=== PATIENT | female | born 1975 | race Caucasian/White ===

== ENCOUNTER 2016-12-25 11:15 | Emergency (ER) | payer MEDICAID ==
[~2016-12-25] VITALS: Ht 152.4 cm; Wt 99.8 kg
[2016-12-25 11:21] VITALS: BP 140/79
--- NOTE | 2016-12-25 11:26 | NUR ---
Patient going to XRAY via wheelchair per tech.
--- NOTE | 2016-12-25 11:40 | NUR ---
Patient back from XRAY via wheelchair per tech to bed 06.
--- NOTE | 2016-12-25 11:42 | NUR ---
41F BIB FAMILY C/O SHORTNESS OF BREATH X YESTERDAY; BL WHEEZES HEARD ON AUSCULTATION; RR EVEN & LABORED AT THIS TIME; PT STATES FEELS CONGESTED W/DRY COUGH; PT C/O ACHING POSTERIOR NECK PAIN, RADIATES TO POSTERIOR HEAD, 10/10 X YESTERDAY; DENIES TRAUMA OR INJURY TO SITE AT THIS TIME; DENIES VISION LOSS AT THIS TIME; NO SWELLING OR REDNESS NOTED TO SITE; PT DENIES N/V/D AT THIS TIME; HX: ASTHMA; PT PLACED ON MONITOR, RESTING IN BED W/ HOB ELEVATED AND IN LOWEST POSITION; POSITIONED FOR COMFORT; ER MD MADE AWARE OF STATUS. WILLC CONTINUE TO MONITOR.
--- NOTE | 2016-12-25 11:47 | NUR ---
Dr. De Oliveira evaluating patient at bedside.
[2016-12-25] MEDS ORDERED: ALBUTEROL SULFATE/IPRATROPIU 3 ML SOL IH ONE (11:55)
[2016-12-25] MEDS ORDERED: NACL 0.9% 1,000 ML IV ONE (11:55)
[2016-12-25] MEDS ORDERED: methylPREDNISolone SS 125 MG/2 ML VIAL IVP ONE (11:55)
--- NOTE | 2016-12-25 12:05 | NUR ---
RT AT BEDSIDE.
--- NOTE | 2016-12-25 12:05 | NUR ---
RT at bedside to give patient breathing treatment.
--- NOTE | 2016-12-25 13:17 | NUR ---
Patient appears to be resting comfortably in bed. Vital Signs within normal limits. Respirations even and unlabored. NO ACUTE DISTRESS NOTED AT THIS TIME. WILL CONTINUE TO MONITOR.
[2016-12-25] MEDS ORDERED: MORPHINE SULFATE 2 MG/ML SYR IVP ONE (13:25)
--- NOTE | 2016-12-25 15:42 | NUR ---
IV removed, catheter intact and site benign. Applied folded 4x4 gauze and tape to stop bleeding. PT TOELRATED PROCEDURE WELL.
[2016-12-25 15:46] VITALS: BP 112/66
--- NOTE | 2016-12-25 15:46 | NUR ---
Patient discharged with v/s stable. BL LUNG SOUNDS CLEAR AT THIS TIME; RR EVEN/UNALBORED; NO ACUTE DISTRESS NOTED AT THIS TIME. Written and verbal after care instructions given and explained. Patient alert, oriented and verbalized understanding of instructions. Ambulatory with steady gait. All questions addressed prior to discharge. ID band removed. Patient advised to follow up with PMD. Rx of PREDNISONE 20MG TAB & ALBUTEROL 90MCG/ACTUATION given. Patient educated on indication of medication including possible reaction and side effects. Opportunity to ask questions provided and answered.
[2017-02-16] MEDS ORDERED: LEXAPRO10 MG PO (08:31)
== END 2016-12-25 15:46 | disposition home or self-care (01) ==
LOC: MED 11:15
DX: J45.901 Unspecified asthma with (acute) exacerbation (principal); R94.31 Abnormal electrocardiogram [ECG] [EKG]
CPT/HCPCS: 36415; 71020; 80053; 83605; 84484; 85025; 85379; 93005; 94640; 96361; 96374; 96375; 99285; J2270; J2930; J7030; J7620

== ENCOUNTER 2016-12-27 23:11 | Emergency (ER) | payer MEDICAID ==
[~2016-12-27] VITALS: Ht 160 cm; Wt 90.7 kg
[2016-12-27 23:20] VITALS: BP 161/86
--- NOTE | 2016-12-27 23:55 | NUR ---
PT TAKEN TO BED 7
--- NOTE | 2016-12-28 | NUR ---
PT IS 41 Y/O F W/C/O PALPITATIONS AND GENERAL WEAKNESS SINCE SHE TOOK AMBROXOL/DEXTROMETORFANO FOR COUGH TODAY. PT STATES WAS ADMITTED TO THIS HOSPITAL ON 12/25/16 FOR PNEUMONIA. DENIES ANY PAIN AT THE MOMENT. MED HX PNEUMONIA AND ASTHMA.
--- NOTE | 2016-12-28 00:19 | NUR ---
Patient being evaluated by DR. WILLARD at bedside.
--- NOTE | 2016-12-28 00:30 | NUR ---
POISON CONTROL CALLED, SPOKE TO JOSE. PER POISON CONTROL TELECOMMUNICATIONS LINE MECHANIC DOSE TAKEN BY PT 30 ML IS THE RECONMENDED DOSE FOR A CHILD AND PT SYMPTOMS WERE R/T TO DEXTROMETORFANO SIDE EFFECTES. AMBROXOL SIDE EFFECTS ARE UPSET STOMACH, DIARRHEA AND STOMACH PAIN BUT PT HAS NO C/O OF THESE SECOND INGRIDIENTS SIDE EFFECTS. PER POISON CONTROL TELECOMMUNICATIONS LINE MECHANIC PT SHOULD BE OK.
--- NOTE | 2016-12-28 00:31 | NUR ---
FREDDY PINTO MADE AWARE OF POISON CONTROL INFORMATION OBTAINED OVER THE PHONE.
[2016-12-28] MEDS ORDERED: NACL 0.9% 1,000 ML IV ONE (00:40)
[2016-12-28 01:35] VITALS: BP 128/71
[2017-02-16] MEDS ORDERED: LEXAPRO10 MG PO (08:31)
== END 2016-12-28 01:36 | disposition home or self-care (01) ==
LOC: MED 23:11
DX: T48.3X1A Poisoning by antitussives, accidental (unintentional), initial encounter (principal); R53.1 Weakness; R42 Dizziness and giddiness; J45.909 Unspecified asthma, uncomplicated; Y92.89 Other specified places as the place of occurrence of the external cause
CPT/HCPCS: 36415; 80053; 81002; 81025; 85025; 85610; 85730; 93005; 96360; 99285; J7030

== ENCOUNTER 2016-12-28 12:27 | Emergency (ER) | payer MEDICAID ==
[~2016-12-28] VITALS: Ht 162.6 cm; Wt 90.7 kg
--- NOTE | 2016-12-28 12:48 | NUR ---
Patient ambulated to bed 08.
[2016-12-28 12:50] VITALS: BP 138/64
--- NOTE | 2016-12-28 13:00 | NUR ---
Dr. Mccullough evaluating patient at bedside.
--- NOTE | 2016-12-28 13:05 | NUR ---
41/F c/o generalized weakness and numbness/tingling to body. Pt states she was seen here yesterday for similar symptoms, prescribed cough medication. Pt went to a clinic this morning and they sent her here for further evaluation of an abnormal EKG and overdose of Brogel 30 ml. Pt states "I didn't know how much I was supposed to take so I took a whole medicine cup full." Patient denies pain. AOX4, turkmen speaking. Cheeks flushed, skin warm and dry, afebrile. Denies N/V/D. VSS. Placed on engineer station mainline, pulse oximetry and blood pressure monitoring.
--- NOTE | 2016-12-28 13:12 | NUR ---
X-Ray at bedside.
--- NOTE | 2016-12-28 13:41 | NUR ---
Son at bedside.
--- NOTE | 2016-12-28 13:42 | NUR ---
Patient appears to be resting comfortably in bed. Vital Signs within normal limits. Respirations even and unlabored. Pt continues to c/o numbness/tingling to body. No distress noted.
[2016-12-28] MEDS ORDERED: POTASSIUM CHLORIDE 10 MEQ TABER PO ONE (14:05)
[2016-12-28 14:48] VITALS: BP 109/64
--- NOTE | 2016-12-28 14:48 | NUR ---
Chart checked and completed. The patient's care was reviewed and supervised by Kasi Porras RN.
[2017-02-16] MEDS ORDERED: LEXAPRO10 MG PO (08:31)
== END 2016-12-28 14:48 | disposition home or self-care (01) ==
LOC: MED 12:27
DX: T48.4X5A Adverse effect of expectorants, initial encounter (principal); J40 Bronchitis, not specified as acute or chronic; R03.0 Elevated blood-pressure reading, without diagnosis of hypertension; J45.909 Unspecified asthma, uncomplicated; Y92.89 Other specified places as the place of occurrence of the external cause
CPT/HCPCS: 36415; 71010; 80053; 81001; 81025; 83880; 84484; 85025; 85610; 85730; 87086; 93005; 99285; Q0092

== ENCOUNTER 2017-01-10 01:05 | Emergency (ER) | payer MEDICAID ==
[~2017-01-10] VITALS: Ht 152.4 cm; Wt 91.4 kg
[2017-01-10 01:11] VITALS: BP 110/74
--- NOTE | 2017-01-10 02:28 | NUR ---
TO ER BED 8
--- NOTE | 2017-01-10 02:34 | NUR ---
41Y F BIB DAUGHTER C/O OF GENERALIZED WEAKNESS, INSOMNIA, ANXIETY AND NERVOUSNESS X2 WKS. DENIES ANY PAIN. NO DISTRESS NOTED. V/S TAKEN AND WNL.
[2017-01-10] MEDS ORDERED: LORazepam 1 MG TAB PO ONE (02:55)
--- NOTE | 2017-01-10 03:39 | NUR ---
Patient discharged with v/s stable. Written and verbal after care instructions given and explained. Patient alert, oriented and verbalized understanding of instructions. Ambulatory with steady gait. All questions addressed prior to discharge. ID band removed. Patient advised to follow up with PMD. Rx of ATIVAN 1MG given. Patient educated on indication of medication including possible reaction and side effects. Opportunity to ask questions provided and answered.
[2017-01-10 03:40] VITALS: BP 114/82
[2017-02-16] MEDS ORDERED: LEXAPRO10 MG PO (08:31)
== END 2017-01-10 03:40 | disposition home or self-care (01) ==
LOC: MED 01:05
DX: F41.9 Anxiety disorder, unspecified (principal); J45.909 Unspecified asthma, uncomplicated

== ENCOUNTER 2017-02-14 18:14 | Inpatient (IN) | payer MEDICAID ==
[~2017-02-14] VITALS: Ht 149.9 cm; Wt 90.7 kg
[2017-02-14 18:17] VITALS: BP 150/88
[2017-02-14] MEDS ORDERED: ASPIRIN 81 MG TAB.CHEW PO ONE ×2 (18:40→19:45)
[2017-02-14] MEDS ORDERED: NACL 0.9% 1,000 ML IV ONE (18:40)
--- NOTE | 2017-02-14 18:41 | NUR ---
Patient ambulated to bed 5
--- NOTE | 2017-02-14 18:45 | NUR ---
PATIENT PRESENTS TO ED WITH INTERMITTENT PALPITATIONS, DIZZINESS, GENERAL WEAKNESS, CARPAL SPASMS X 2 MONTHS . PT STATES . DENIES N/V/D; SKIN IS PINK/WARM/DRY; AAOX4 WITH EVEN AND STEADY GAIT; LUNGS CLEAR BL; HR EVEN AND REGULAR; PT DENIES ANY FEVER, CP, SOB, OR COUGH AT THIS TIME; PATIENT STATES PAIN OF 0/10 AT THIS TIME; VSS; PATIENT POSITIONED FOR COMFORT; HOB ELEVATED; BEDRAILS UP X2; BED DOWN. ER MD MADE AWARE OF PT STATUS.
[2017-02-14 19:02] LABS: BASOPHILS # (AUTO) 0.3 K/uL (0.00-0.22); EOSINOPHILS # (AUTO) 0.3 K/uL (0-0.4); HEMATOCRIT 37.6 % (36-48); HEMOGLOBIN 12.7 g/dL (12.0-16.0); LYMPHOCYTES # (AUTO) 2.5 K/uL (2.5-16.5); MEAN CORPUSCULAR HEMOGLOBIN 29 pg (27-31); MEAN CORPUSCULAR HGB CONC 34 g/dL (33-37); MEAN CORPUSCULAR VOLUME 87 fL (80-94); MONOCYTES # (AUTO) 0.6 K/uL (0.8-1.0); PLATELET COUNT (AUTO) 280 K/uL (140-450); RED BLOOD CELL COUNT(AUTO) 4.35 MIL/uL (4.20-5.40); RED CELL DISTRIBUTION WIDTH 13.8 % (11.6-13.7); WHITE BLOOD COUNT (AUTO) 10.7 K/uL (4.8-10.8)
--- NOTE | 2017-02-14 19:12 | NUR ---
Dr. Webb evaluating patient at bedside.
[2017-02-14 19:21] LABS: ANION GAP 13.1 (8-16); CALCIUM 8.4 mg/dL (8.5-10.1); CARBON DIOXIDE 25.2 mmol/L (21-32); CREATININE 0.6 mg/dL (0.6-1.3); POTASSIUM 3.3 mmol/L (3.5-5.1)
[2017-02-14 19:24] LABS: PARTIAL THROMBOPLASTIN TIME 25.9 secs (22-35.6); PROTHROMBIN TIME 10.1 secs (10.8-13.4)
[2017-02-14 19:26] LABS: ALBUMIN 3.5 g/dL (3.4-5.0); TOTAL BILIRUBIN 0.3 mg/dL (0.0-1.0); TOTAL PROTEIN, SERUM 7.6 g/dL (6.4-8.2)
[2017-02-14] MEDS ORDERED: LORazepam 1 MG TAB PO ONE (19:40)
[2017-02-14] MEDS ORDERED: NITROGLYCERIN 0.4 MG TAB SL ONE (19:45)
[2017-02-14 20:00] VITALS: BP 114/62
--- NOTE | 2017-02-14 20:00 | NUR ---
PT ADMITTED TO UNIT FROM ED, BROUGHT BY DOREEN, PT ABLE TO AMBULATE TO BED, STEADY GAIT. PT IS AAO X4 ON ROOM AIR, NO SOB OR SIGN OF DISTRESS, PT DENIES PAIN AT THIS TIME, CONNECTED TO TELE MONITOR, IV TO RIGHT AC PATENT AND INTACT. SKIN INTACT, ORIENTED PT TO ROOM AND CALL LIGHT. DISCUSSED PLAN OF CARE WITH PATIENT, PT VERBALIZED UNDERSTANDING. CALL LIGHT WITHIN REACH. WILL CONTINUE TO MONITOR.
--- NOTE | 2017-02-14 20:05 | NUR ---
Patient will be admitted to care of DR MAYER. Admited to TELE 120A. Will go to rooM 120A. Belongings list completed. Report to HAN MANUEL .
[2017-02-14] MEDS ORDERED: ONDANSETRON 4 MG/2 ML VIAL IM/IVP PRN (21:15)
[2017-02-14] MEDS: NACL 0.9% 1,000 ML IV SCH (21:15)
[2017-02-14] MEDS ORDERED: ACETAMINOPHEN 325 MG TAB PO PRN (21:15)
[2017-02-14] MEDS ORDERED: HYDROcodone/APAP 7.5/325 MG 1 TAB PO PRN (21:15)
[2017-02-14] MEDS ORDERED: DOCUSATE SODIUM 100 MG GELCAP PO PRN (21:15)
[2017-02-14] MEDS ORDERED: MORPHINE SULFATE 2 MG/ML SYR IVP PRN (21:15)
[2017-02-14 21:58] LABS: MAGNESIUM 2.2 mg/dL (1.8-2.4); PHOSPHORUS 3.8 mg/dL (2.5-4.9); THYROID STIMULATING HORMONE 0.6 uIU/mL (0.34-3.74)
--- NOTE | 2017-02-14 22:35 | NUR ---
PT OFF UNIT TO XRAY
--- NOTE | 2017-02-14 22:45 | NUR ---
PT BACK ON UNIT, STABLE CONDITION
[2017-02-14] MEDS ORDERED: LORazepam 0.5 MG TAB PO PRN (23:30)
[2017-02-15] VITALS (7 sets, daily range): BP systolic 100–114; BP diastolic 54–69
[2017-02-15] MEDS ORDERED: POTASSIUM CHLORIDE 10 MEQ TABER PO SCH (00:10)
--- NOTE | 2017-02-15 00:50 | NUR ---
VITAL SIGNS STABLE, NO SIGN OF DISTRESS, CALL LIGHT WITHIN REACH. WILL CONTINUE TO MONITOR.
--- NOTE | 2017-02-15 02:20 | NUR ---
PATIENT SLEEPING, NO SIGN OF DISTRESS, CALL LIGHT WITHIN REACH. WILL CONTINUE TO MONITOR.
[2017-02-15 03:36] LABS: BASOPHILS # (AUTO) 0.3 K/uL (0.00-0.22); BASOPHILS % (AUTO) 2.6 % (0.0-2.0); EOSINOPHILS # (AUTO) 0.3 K/uL (0-0.4); EOSINOPHILS % (AUTO) 3.4 % (0.0-4.0); HEMATOCRIT 35.9 % (36-48); HEMOGLOBIN 11.8 g/dL (12.0-16.0); LYMPHOCYTES # (AUTO) 3.7 K/uL (2.5-16.5); LYMPHOCYTES % (AUTO) 35.6 % (20.5-51.1); MEAN CORPUSCULAR HEMOGLOBIN 29 pg (27-31); MEAN CORPUSCULAR HGB CONC 33 g/dL (33-37); MEAN CORPUSCULAR VOLUME 89 fL (80-94); MONOCYTES # (AUTO) 0.8 K/uL (0.8-1.0); MONOCYTES % (AUTO) 7.5 % (1.7-9.3); NEUTROPHILS # (AUTO) 5.2 K/uL (1.8-7.7); NEUTROPHILS % (AUTO) 50.9 % (42.2-75.2); PLATELET COUNT (AUTO) 268 K/uL (140-450); RED BLOOD CELL COUNT(AUTO) 4.06 MIL/uL (4.20-5.40); RED CELL DISTRIBUTION WIDTH 14.1 % (11.6-13.7); WHITE BLOOD COUNT (AUTO) 10.3 K/uL (4.8-10.8)
--- NOTE | 2017-02-15 04:10 | NUR ---
VITAL SIGNS STABLE, NO SOB OR SIGN OF DISTRESS, WILL CONTINUE TO MONITOR.
[2017-02-15 04:14] LABS: ANION GAP 8.5 (8-16); CALCIUM 7.8 mg/dL (8.5-10.1); CARBON DIOXIDE 27.2 mmol/L (21-32); CREATININE 0.5 mg/dL (0.6-1.3); POTASSIUM 3.7 mmol/L (3.5-5.1)
[2017-02-15 04:32] LABS: MAGNESIUM 1.9 mg/dL (1.8-2.4); PHOSPHORUS 4.1 mg/dL (2.5-4.9)
[2017-02-15] MEDS: NACL 0.9% 1,000 ML IV SCH (06:31)
--- NOTE | 2017-02-15 07:30 | NUR ---
RECEIVED REPORT FROM NIGHT NURSE, PT IS AAOX4 HUNGARIAN SPEAKING, ON ROOM AIR, IV TO RIGHT AC 20G INFUSING WELL, SKIN INTACT, PT STATES NO CHEST PAIN OR SOB, INITIAL ASSESSMENT COMPLETED, REVIEWED PLAN OF CARE WITH PT, PT VERBALIZED UNDERSTANDING, ALL SAFETY PRECAUTIONS MET, CALL LIGHT WITHIN REACH. WILL CONTINUE TO MONITOR.
--- NOTE | 2017-02-15 07:30 | NUR ---
ENDORSED PATIENT TO DAY RN AT BEDSIDE, PATIENT IN STABLE CONDITION.
[2017-02-15] MEDS: PANTOPRAZOLE 40 MG TABEC PO SCH (09:02)
--- NOTE | 2017-02-15 09:03 | NUR ---
DUE MEDICATIONS GIVEN, PT TOLERATED WELL, ALL NEEDS MET. WILL CONTINUE TO MONITOR.
--- NOTE | 2017-02-15 10:11 | NUR ---
PATIENT HAS BEEN SCREENED AND CATEGORIZED HIGH NUTRITION RISK. PATIENT WILL BE SEEN WITHIN 1-2 DAYS OF ADMISSION. 02/15/17-02/16/[address]
--- NOTE | 2017-02-15 11:50 | NUR ---
PT CURRENTLY WALKING AROUND UNIT. WILL CONTINUE TO MONITOR.
--- NOTE | 2017-02-15 14:30 | NUR ---
CHECKED IN ON PT, PT CURRENTLY SLEEPING. CALL LIGHT WITHIN REACH. WILL CONTINUE TO MONITOR.
--- NOTE | 2017-02-15 16:20 | NUR ---
PT CURRENTLY RESTING IN BED NO S/S OF DISTRESS NOTED. ALL NEEDS MET WILL CONTINUE TO MONITOR
--- NOTE | 2017-02-15 18:25 | NUR ---
PT CURRENTLY RESTING IN BED, FRIENDS AT BEDSIDE. NO S/S OF DISTRESS OR DISCOMFORT NOTED. WILL CONTINUE TO MONITOR.
--- NOTE | 2017-02-15 19:30 | NUR ---
ASSUMED CARE OF PATIENT, AWAKE, ALERT AND ORIENTED. FAMILY AT BEDSIDE. PLAN OF CARE DISCUSSED WITH PATIENT AND FAMILY MEMBER, VERBALIZED UNDERSTANDING WELL. CALL LIGHT WITHIN REACH.
--- NOTE | 2017-02-15 19:39 | NUR ---
ENDORSED PLAN OF CARE TO NIGHT NURSE, PT IN STABLE CONDITION.
--- NOTE | 2017-02-15 20:00 | NUR ---
IVF INFUSING WELL. CARE BOARD UPDATED. VITAL SIGNS STABLE. AFEBRILE. NO COMPLAINS/SOB NOTED. CALL LIGHT WITHIN REACH.
--- NOTE | 2017-02-15 23:47 | NUR ---
SLEEPING, EASILY AROUSABLE NOTED. VITAL SIGNS STABLE. AFEBRILE NOTED. CALL LIGHT WITHIN REACH.
[2017-02-16 04:08] VITALS: BP 98/57
--- NOTE | 2017-02-16 04:09 | NUR ---
AWAKE, COMPLETE BED CHANGE. ASSISTED TO BRP. NO COMPLAINS. VITAL SIGNS STABLE. CALL LIGHT WITHIN REACH.
[2017-02-16] MEDS: NACL 0.9% 1,000 ML IV SCH (06:31)
--- NOTE | 2017-02-16 07:29 | NUR ---
ENDORSED CARE AT BEDSIDE WITH ROBYN MANUEL, PATIENT IN STABLE CONDITION.
--- NOTE | 2017-02-16 07:30 | NUR ---
RECEIVED REPORT FROM RPG PROGRAMMER ANALYST NURSE AT BEDSIDE FOR CONTINUITY OF CARE. PT IS AWAIT AND ORIENTED. INTRODUCED MYSELF AND UPDATED THE BOARD. V/S WITHIN NORMAL RANGE. DENIES CHEST PAIN. IV ON R AC 20G NS 10ML. DENIES PAIN. THERE IS AN ORDER OF D/C TODAY. WILL CONTINUE TO PROCESS THE D/C.
[2017-02-16 08:00] VITALS: BP 111/61
[2017-02-16] MEDS ORDERED: ESCI10TA PO (08:31)
[2017-02-16 08:43] LABS: T4 (THYROXINE) 8.5 ug/dL (4.5-12.0)
[2017-02-16] MEDS: PANTOPRAZOLE 40 MG TABEC PO SCH (08:44)
--- NOTE | 2017-02-16 08:45 | NUR ---
ADMINISTERED MORNING MED. PT TOLERATED WELL. ASKED WHAT TIME HER RIDE WAS GOING TO GET HERE. AROUND 1:30. WILL CONTINUE TO MONITOR PT AND PROCESS D/C ORDER.
[2017-02-16] MEDS ORDERED: LORazepam 0.5 MG TAB PO SCH (08:50)
[2017-02-16 09:01] LABS: HEMOGLOBIN A1C 6.1 % (4.8-5.6)
--- NOTE | 2017-02-16 10:23 | NUR ---
PT RESTING COMFORTABLY. VISITING WITH HER NEIGHBOR. NO COMPLAINTS AT THIS TIME. WILL CONTINUE TO MONITOR PT.
--- NOTE | 2017-02-16 11:30 | NUR ---
SS NOTE: I SPOKE WITH PT BEDSIDE WITH KALEB FARIAS TO TRANSLATE AND PROVIDED PT WITH OUTPT MENTAL HE[facility].
--- NOTE | 2017-02-16 12:00 | NUR ---
D/C INSTRUCTIONS GIVEN BY KALEB FARIAS. ANSWERED ALL QUESTIONS. PT AND FAMILY VERBALIZED UNDERSTANDING. REMOVED IV, CANNULA INTACT. NO BLEEDING NOTED. REMOVED ID BAND. REMOVED TELE MONITOR. PT IN STABLE CONDITION. PT WILL GET DRESSED AND WILL GATHER PERSONAL BELONGINGS. WILL LET ME KNOW WHEN HER RIDE IS HERE AND READY TO LEAVE. Addendum: 02/16/17 at 1308 by Christine Prater RN PER HOME MEDS PICKED UP AT THE PHARMACY AND GIVEN TO PT.
--- NOTE | 2017-02-16 12:45 | NUR ---
WALKED PT OUT WITH FAMILY TO THE LOBBY. PT IS IN STABLE CONDITION. REFUSED WHEELCHAIR. PT IN STABLE CONDITION.
== END 2017-02-16 12:45 | disposition home or self-care (01) | DRG 243 ==
LOC: MED 18:14 → MTU 21:15
PROVIDERS: ADMIT Family Medicine; ATTEND Family Medicine
DX: K21.9 Gastro-esophageal reflux disease without esophagitis (principal); E43 Unspecified severe protein-calorie malnutrition; E87.8 Other disorders of electrolyte and fluid balance, not elsewhere classified; F41.1 Generalized anxiety disorder; E87.6 Hypokalemia; F32.9 Major depressive disorder, single episode, unspecified; K41.90 Unilateral femoral hernia, without obstruction or gangrene, not specified as recurrent; E66.01 Morbid (severe) obesity due to excess calories; R73.03 Prediabetes; I25.10 Atherosclerotic heart disease of native coronary artery without angina pectoris; J45.909 Unspecified asthma, uncomplicated; Z60.2 Problems related to living alone; Z71.3 Dietary counseling and surveillance; Z83.3 Family history of diabetes mellitus; Z56.0 Unemployment, unspecified; Z68.41 Body mass index [BMI] 40.0-44.9, adult
CPT/HCPCS: 36415; 71010; 74020; 80048; 80053; 83036; 83735; 83880; 84100; 84436; 84443; 84479; 84484; 84703; 85025; 85610; 85730; 87081; 93005; 96360; 99285; J7030

== ENCOUNTER 2017-02-17 21:44 | Emergency (ER) | payer MEDICAID ==
[~2017-02-17] VITALS: Ht 157.5 cm; Wt 86.2 kg
[~2017-02-17 21:44] MED LIST: ESCI10TA PO
[2017-02-17 21:53] VITALS: BP 112/63
--- NOTE | 2017-02-18 00:54 | NUR ---
AMBULATED TO ER BED 7 FROM OG
--- NOTE | 2017-02-18 01:19 | NUR ---
41Y/F PT. BIBA TO ED WITH C/O CDHEST PAIN X 6 DAYS. PT. WAS ADMITTED IN THE HOSPITAL ON 02/15/17 FOR CHEST PAIN AND HYPOCALCEMIA, PERSISTANT CHEST PAIN WITH EPISODE OF SOB. AAO X4, AMBULATORY WITH STEADY GAIT. RESPIRATIONS ROOM AIR, EVEN AND UNLABORED. C/O CHEST PAIN 02/14. VSS, NO S/SX OF DISTRESS AT THIS TIME. ER MD MADE AWRE OF PT. STATUS.
[2017-02-18] MEDS ORDERED: KETOROLAC 60 MG/2 ML VIAL IM ONE (02:25)
--- NOTE | 2017-02-18 02:30 | NUR ---
Patient being evaluated by DR. MATAMOROS at bedside.
--- NOTE | 2017-02-18 03:00 | NUR ---
Patient discharged with v/s stable. Written and verbal after care instructions given and explained. Patient alert, oriented and verbalized understanding of instructions. Ambulatory with steady gait. All questions addressed prior to discharge. ID band removed. Patient advised to follow up with PMD. Rx of MOTRIN 800 MG given. Patient educated on indication of medication including possible reaction and side effects. Opportunity to ask questions provided and answered.
[2017-02-18 03:07] VITALS: BP 117/72
== END 2017-02-18 03:00 | disposition home or self-care (01) ==
LOC: MED 21:44
DX: R07.89 Other chest pain (principal); J45.909 Unspecified asthma, uncomplicated
CPT/HCPCS: 93005; 96372; 99283; J1885

== ENCOUNTER 2018-01-18 22:10 | Emergency (ER) | payer SELFPAY ==
[~2018-01-18] VITALS: Ht 142.2 cm; Wt 83.5 kg
[2018-01-18 22:14] VITALS: BP 119/61
--- NOTE | 2018-01-18 22:18 | NUR ---
TO LOBBY A/W BED, XRAY. VSS. ISAIAS NOTED
--- NOTE | 2018-01-18 22:44 | NUR ---
PATIENT PRESENTS TO ED WITH EXPIRATORY WHEEZING X3 DAYS. DR MCCONNELL AT BEDSIDE FOR EVALUATION. PT DENIES N/V/D; SKIN IS PINK/WARM/DRY; AAOX4 WITH EVEN AND STEADY GAIT; LUNGS CLEAR BL; HR EVEN AND REGULAR; PT DENIES ANY FEVER, CP, OR COUGH AT THIS TIME; PATIENT STATES PAIN OF 0/10 AT THIS TIME; VSS; PATIENT POSITIONED FOR COMFORT; HOB ELEVATED; BEDRAILS UP X2; BED DOWN. ER MD MADE AWARE OF PT STATUS. CONTINUE TO MONITOR.
--- NOTE | 2018-01-18 22:44 | NUR ---
PT TO ER BED 7
[2018-01-18] MEDS ORDERED: ALBUTEROL SULFATE/IPRATROPIU 3 ML SOL IH ONE (23:00)
[2018-01-19 00:08] VITALS: BP 111/67
--- NOTE | 2018-01-19 00:08 | NUR ---
Patient discharged with v/s stable. Written and verbal after care instructions given and explained. Patient alert, oriented and verbalized understanding of instructions. Ambulatory with steady gait. All questions addressed prior to discharge. ID band removed. Patient advised to follow up with PMD. Rx of AZITHROMYCIN 250 given. Patient educated on indication of medication including possible reaction and side effects. Opportunity to ask questions provided and answered.
== END 2018-01-19 00:08 | disposition home or self-care (01) ==
LOC: MED 22:10
DX: J20.9 Acute bronchitis, unspecified (principal); J45.909 Unspecified asthma, uncomplicated; Z79.899 Other long term (current) drug therapy
CPT/HCPCS: 71045; 94640; 94760; 99283; J7620

== ENCOUNTER 2018-11-06 01:26 | Inpatient (IN) | payer MEDICAID ==
[~2018-11-06] VITALS: Ht 160 cm; Wt 71.7 kg
[2018-11-06 01:38] VITALS: BP 149/105
[2018-11-06] MEDS ORDERED: ALBUTEROL SULFATE/IPRATROPIU 3 ML SOL IH ONE ×2 (01:40)
--- NOTE | 2018-11-06 01:44 | NUR ---
PT TO ED WITH C/O SOB X 3 DAYS. PT DENIES CP. AUDIBLE WHEEZING AND LABORED BREATHING NOTED. LUNG SOUNDS CLEAR THROUGHOUT. PT PLACED INTO BED, PENDING MD BOLIVAR. RT AT BEDSIDE FOR INTERVENTION.
--- NOTE | 2018-11-06 02:35 | NUR ---
X-RAY AT BEDSIDE.
[2018-11-06] MEDS ORDERED: methylPREDNISolone SS 125 MG/2 ML VIAL IM ONE (02:50)
[2018-11-06] MEDS ORDERED: ALBUTEROL 0.083% 2.5 MG/3 ML NEBU INH ONE (02:50)
--- NOTE | 2018-11-06 02:59 | NUR ---
RT AT BEDSIDE FOR TX.
[2018-11-06] MEDS ORDERED: MAG SULF 2000 MG/WATER PREMIX 50 ML IV ONE (04:05)
[2018-11-06] MEDS ORDERED: ALBU0.0912 INH (04:07)
[2018-11-06] MEDS: NACL 0.9% 1,000 ML IV SCH ×2 (04:13→20:54)
[2018-11-06] MEDS ORDERED: ZOLPIDEM 5 MG TAB PO PRN (04:15)
[2018-11-06] MEDS ORDERED: HYDROcodone/APAP 5/325 MG 1 TAB TAB PO PRN (04:15)
[2018-11-06] MEDS ORDERED: ALBUTEROL SULFATE/IPRATROPIU 3 ML SOL IH PRN (04:15)
[2018-11-06] MEDS ORDERED: ACETAMINOPHEN 325 MG TAB PO PRN (04:15)
[2018-11-06] MEDS ORDERED: MORPHINE SULFATE 2 MG/ML SYR IVP PRN (04:15)
[2018-11-06] MEDS ORDERED: DOCUSATE SODIUM 100 MG GELCAP PO PRN (04:15)
[2018-11-06] MEDS ORDERED: ONDANSETRON 4 MG/2 ML VIAL IM/IVP PRN (04:15)
[2018-11-06] MEDS ORDERED: LORazepam 2 MG/ML VIAL IM/IVP PRN (04:15)
[2018-11-06 04:18] LABS: BASOPHILS # (AUTO) 0.1 K/uL (0.00-0.22); BASOPHILS % (AUTO) 0.5 % (0.0-2.0); EOSINOPHILS # (AUTO) 0.3 K/uL (0-0.4); EOSINOPHILS % (AUTO) 2.2 % (0.0-4.0); HEMATOCRIT 37.2 % (36-48); HEMOGLOBIN 12.3 g/dL (12.0-16.0); LYMPHOCYTES # (AUTO) 3.3 K/uL (2.5-16.5); LYMPHOCYTES % (AUTO) 28.2 % (20.5-51.1); MEAN CORPUSCULAR HEMOGLOBIN 29 pg (27-31); MEAN CORPUSCULAR HGB CONC 33 g/dL (33-37); MEAN CORPUSCULAR VOLUME 87.1 fL (80-94); MONOCYTES # (AUTO) 0.5 K/uL (0.8-1.0); MONOCYTES % (AUTO) 4.5 % (1.7-9.3); NEUTROPHILS # (AUTO) 7.7 K/uL (1.8-7.7); NEUTROPHILS % (AUTO) 64.6 % (42.2-75.2); PLATELET COUNT (AUTO) 293 K/uL (140-450); RED BLOOD CELL COUNT(AUTO) 4.27 MIL/uL (4.20-5.40); RED CELL DISTRIBUTION WIDTH 14.5 % (11.6-13.7); WHITE BLOOD COUNT (AUTO) 11.8 K/uL (4.8-10.8)
[2018-11-06 04:33] LABS: ALBUMIN 3.5 g/dL (3.4-5.0); ANION GAP 12.8 (8-16); CARBON DIOXIDE 25.2 mmol/L (21-32); CREATININE 0.6 mg/dL (0.6-1.3); TOTAL BILIRUBIN 0.2 mg/dL (0.0-1.0)
--- NOTE | 2018-11-06 04:37 | NUR ---
Patient will be admitted to care of DR MALDONADO. Admited to MED SURG. Will go to room 120-A. Belongings list completed. Report to KALEB LANDAVERDE.
[2018-11-06] MEDS ORDERED: POTASSIUM CHLORIDE 10 MEQ TABER PO ONE (04:40)
[2018-11-06] MEDS ORDERED: guaiFENesin/CODEINE 100/10MG 5 ML UDC PO PRN (04:45)
--- NOTE | 2018-11-06 05:05 | NUR ---
RECEIVED PT FROM [facility] ER NIGHT NURSE AT BEDSIDE. PT BROUGHT UP BY DOREEN TO ROOM 120 AND AMBULATED TO BED A WITH A STEADY GAIT. PT IS AOX4 KENYAN SPEAKING WOMEN WITH NO HX EXCEPT ASTHMA. PT DENIES ANY MEDICAL HX, SKIN INTACT WITH NO C/O OF PAIN PT NOTED WHEEZING WITH INSPIRATION AND EXPIRATION. PT LUNGS CLEAR TO AUSCULTATION OTHERWISE. PT HAS R HAND 22G IV SITE. MAGNESIUM STILL RUNNING PIGGYBACK AT 25MLS FROM ER. PT HAS N/S AT 60MLS/HR. V/S FOLLOWS T 97.4 P 94 R 22 B/P 126/70 02 96% ON ROOM AIR.
[2018-11-06 05:16] LABS: PROTHROMBIN TIME 9.4 secs (10.8-13.4)
[2018-11-06 05:27] LABS: CHOL/HDL RATIO 2.6 (1-4.5); MAGNESIUM 2.1 mg/dL (1.8-2.4); PHOSPHORUS 3.9 mg/dL (2.5-4.9); THYROID STIMULATING HORMONE 1.39 uIU/mL (0.34-3.74)
--- NOTE | 2018-11-06 05:33 | NUR ---
ADMISSION QUESTIONS ASKED AND ANSWERED VIA MARCELLA OFFAL WORKER FOR [facility] # [id number]. PT HAS NO C/O OF PAIN AT THIS TIME BED LOW AND SIDE RAILS UP X2.
[2018-11-06 05:45] VITALS: BP 126/70
[2018-11-06] MEDS ORDERED: ALBUTEROL SULFATE/IPRATROPIU 3 ML SOL IH SCH (06:00)
[2018-11-06] MEDS ORDERED: cefTRIAXone 1,000 MG VIAL ONE (06:21)
--- NOTE | 2018-11-06 07:42 | NUR ---
GAVE REPORT TO MOHINI MANULE DAYSHIFT NURSE AT BEDSIDE FOR CONTINUITY OF CARE, PT IN STABLE CONDITION.
--- NOTE | 2018-11-06 07:43 | NUR ---
GOT BEDSIDE REPORT FROM KALEB LANDAVERDE. PATIENT ON MED SURGE AND STANDARD PRECAUTIONS IN PLACE, PATIENT AAOX4 AND ON ROOM AIR, NO DISTRESS NOTED. SKIN INTACT. IV ON 4 H 24 G INFUSING NS AT 60, IV ASYMPTOMATIC PATENT AND INTACT. BED IN LOW POSITION, CALL LIGHT WITHIN REACH, SIDE RAILS X2 UP. WILL CONTINUE TO MONITOR.
[2018-11-06 08:00] VITALS: BP 99/64
--- NOTE | 2018-11-06 08:44 | NUR ---
PATIENT HAS BEEN SCREENED AND CATEGORIZED HIGH NUTRITION RISK. PATIENT WILL BE SEEN WITHIN 1-2 DAYS OF ADMISSION. 11/06/18-11/07/[address]
[2018-11-06] MEDS ORDERED: methylPREDNISolone SS 125 MG/2 ML VIAL IVP SCH (09:00)
[2018-11-06] MEDS ORDERED: LORATADINE 10 MG TAB PO SCH (09:00)
[2018-11-06] MEDS: LACTOBACILLUS RHAMNOSUS GG 1 EACH CAP PO SCH (09:14)
[2018-11-06] MEDS: FAMOTIDINE 20 MG TAB PO SCH (09:15)
--- NOTE | 2018-11-06 09:30 | NUR ---
ADMINISTERED SCHEDULED MEDS. PATIENT TOLERATED WELL
--- NOTE | 2018-11-06 11:57 | NUR ---
PATIENT ON ROOM AIR, NO DISTRESS NOTED, LYING COMFORTABLY IN BED
[2018-11-06] MEDS ORDERED: INFLUENZA VIRUS VACCINE QUAD 0.5 ML SYR IMVAC PRN (12:40)
[2018-11-06] MEDS: methylPREDNISolone SS 125 MG/2 ML VIAL IVP SCH ×2 (12:41→20:54)
--- NOTE | 2018-11-06 12:46 | NUR ---
ADMINISTERED SCHEDULED MEDS, PATIENT ON ROOM AIR NO DISTRESS NOTED
[2018-11-06] MEDS ORDERED: BUDESONIDE 0.25 MG/2 ML NEBU INH SCH (13:00)
[2018-11-06] MEDS: ALBUTEROL SULFATE/IPRATROPIU 3 ML SOL IH SCH ×2 (13:29→19:14)
--- NOTE | 2018-11-06 14:32 | NUR ---
PATIENT SLEEPING, ON ROOM AIR, NO DISTRESS NOTED
--- NOTE | 2018-11-06 14:48 | NUR ---
11/06/18 RD INITIAL ASSESSMENT COMPLETED PLEASE REFER TO NUTRITION ASSESSMENT UNDER CARE ACTIVITY FOR ESTIMATED NUTRITIONAL NEEDS. 1. CONTINUE [facility] DIET TOLERATED 2. DIABETES EDUCATION WAS PROVIDED 3. RD TO FOLLOW-UP 5-7 DAYS, LOW RISK MATT HERRERA RD
--- NOTE | 2018-11-06 15:42 | NUR ---
@ 1130: PAGED DR. CHARLIE LINARES UNDER [facility], PER DR. SANCHEZ, DR. BHAGAT FROM [facility] IS NOT ACCEPTING PTS AT THIS TIME. AWAITING FOR DR. LINARES TO CALL BACK (IF THEY WANT TO TAKE THE PT UNDER THEIR SERVICE).
--- NOTE | 2018-11-06 15:49 | NUR ---
DR. CHARLIE LINARES FROM [facility] DID NOT RETURN CALL, DR. SHARMA NOTIFIED, STATED THEY ARE STILL KEEPING THE PT UNDER DR. MALDONADO'S SERVICE.
[2018-11-06 16:00] VITALS: BP 95/56
--- NOTE | 2018-11-06 16:57 | NUR ---
PATIENT SLEEPING, ON ROOM AIR, NO DISTRESS NOTED
[2018-11-06] MEDS: BUDESONIDE 0.25 MG/2 ML NEBU INH SCH (19:14)
--- NOTE | 2018-11-06 19:27 | NUR ---
GAVE BEDSIDE REPORT TO KALEB GEORGE. PATIENT ENDORSED IN STABLE CONDITION, CURRENTLY ON BREATHING TREATMENTS
--- NOTE | 2018-11-06 19:30 | NUR ---
RECEIVED BEDSIDE REPORT FROM DAY SHIFT NURSE FOR CONTINUITY OF CARE. PATIENT AWAKE, ALERT, AND COOPERATIVE. RESPIRATION EVEN UNLABORED ON ROOM AIR. DENIES PAIN. SKIN IS WARM AND DRY. IV PATENT AND INTACT. FAMILY AT BEDSIDE. PLAN OF CARE WAS DISCUSSED. ALL SAFETY MEASURES ARE IN PLACE. BED IS AT LOW POSITION. CALL LIGHT WITHIN REACH AND VERBALIZE ITS USE. WILL CONTINUE TO MONITOR.
--- NOTE | 2018-11-06 20:00 | NUR ---
INITIAL ASSESSMENT DONE. VITALS WERE TAKEN. PATIENT CONDITION STABLE. NO DISTRESS NOTED. WILL CONTINUE TO MONITOR.
[2018-11-06 20:05] LABS: APPEARANCE,URINE CLEAR (CLEAR); BILIRUBIN,URINE NEGATIVE (NEGATIVE); BLOOD, URINE NEGATIVE (NEGATIVE); COLOR,URINE YELLOW (YELLOW); LEUKOCYTE ESTERASE ,URINE NEGATIVE (NEGATIVE); NITRITE, URINE NEGATIVE (NEGATIVE); UGLUCOSE 2+ (NEGATIVE)
--- NOTE | 2018-11-06 20:07 | NUR ---
SPUTUM SAMPLE GIVEN BY PATIENT. WILL SEND TO LAB
[2018-11-06 20:09] LABS: BARBITURATE, URINE NEG. ng/ml (NEG <=200); BENZODIAZEPINE, URINE NEG. ng/mL (NEG <=200); CANNABINOID, URINE NEG. ng/mL (NEG <=50); COCAINE, URINE NEG. ng/mL (NEG <=300); OPIATE, URINE NEG. ng/mL (NEG <=2000); PHENCYCLIDINE SCREEN,URINE NEG. ng/mL (NEG <=25)
--- NOTE | 2018-11-06 21:00 | NUR ---
ALL SCHEDULE MEDS WERE GIVEN PER ORDER. NO ASE NOTED. WILL CONTINUE TO MONITOR.
--- NOTE | 2018-11-06 23:00 | NUR ---
CHECKED PATIENT. PATIENT WATCHING TV RESPIRATION EVEN UNLABORED ON ROOM AIR. NO DISTRESS NOTED. WILL CONTINUE TO MONITOR.
[2018-11-07] VITALS: BP 102/49
--- NOTE | 2018-11-07 | NUR ---
VITALS WERE TAKEN. PATIENT CONDITION STABLE. WILL CONTINUE TO MONITOR.
[2018-11-07] MEDS ORDERED: guaiFENesin DM 200/20 MG-10 ML 10 ML UDC PO PRN (02:30)
--- NOTE | 2018-11-07 02:30 | NUR ---
PATIENT COMPLAINED OF COUGH AND EXCESSIVE PHLEGM IN HER THROAT. NOTIFIED DR. DEAN. ADMINISTERED PRN COUGH. WILL CONTINUE TO MONITOR.
--- NOTE | 2018-11-07 03:20 | NUR ---
PATIENT ACCIDENTALLY PULLED HER IV. NO ACTIVE BLEEDING. CANNULA INTACT. INSERTED NEW IV LINE TO RIGHT FOREARM 24G AND TOLERATED WELL. WILL CONTINUE TO MONITOR.
--- NOTE | 2018-11-07 04:00 | NUR ---
CHECKED PATIENT. PATIENT SLEEPING RESPIRATION EVEN UNLABORED ON ROOM AIR. NO DISTRESS NOTED. WILL CONTINUE TO MONITOR.
[2018-11-07] MEDS: methylPREDNISolone SS 125 MG/2 ML VIAL IVP SCH (04:22)
[2018-11-07] MEDS ORDERED: DEXTROSE 50% 50 ML SYR IVP PRN (06:05)
[2018-11-07] MEDS: BLOOD GLUCOSE MONITORING 1 DEV DEV FS SCH ×4 (06:29→20:25)
[2018-11-07] MEDS: INSULIN LISPRO SLIDING SCALE 100 UNITS/ML VIAL SUBQ PRN ×2 (06:30→12:11)
[2018-11-07] MEDS: ALBUTEROL SULFATE/IPRATROPIU 3 ML SOL IH SCH ×3 (06:45→19:46)
[2018-11-07 06:53] LABS: BASOPHILS % (AUTO) 0.1 % (0.0-2.0); HEMATOCRIT 33.4 % (36-48); LYMPHOCYTES % (AUTO) 5.5 % (20.5-51.1); MEAN CORPUSCULAR HEMOGLOBIN 29 pg (27-31); MEAN CORPUSCULAR HGB CONC 33 g/dL (33-37); MONOCYTES # (AUTO) 0.6 K/uL (0.8-1.0); MONOCYTES % (AUTO) 3.6 % (1.7-9.3); NEUTROPHILS # (AUTO) 16.2 K/uL (1.8-7.7); NEUTROPHILS % (AUTO) 90.8 % (42.2-75.2); PLATELET COUNT (AUTO) 274 K/uL (140-450); RED BLOOD CELL COUNT(AUTO) 3.84 MIL/uL (4.20-5.40); RED CELL DISTRIBUTION WIDTH 14.8 % (11.6-13.7)
[2018-11-07] MEDS: BUDESONIDE 0.25 MG/2 ML NEBU INH SCH ×2 (06:55→19:46)
[2018-11-07 07:04] LABS: ANION GAP 16.8 (8-16); CREATININE 0.5 mg/dL (0.6-1.3); POTASSIUM 3.8 mmol/L (3.5-5.1)
[2018-11-07 07:14] LABS: WHITE BLOOD COUNT (AUTO) 17.9 K/uL (4.8-10.8)
--- NOTE | 2018-11-07 07:21 | NUR ---
ENDORSED PATIENT TO DAY SHIFT NURSE FOR CONTINUITY OF CARE. PATIENT IS STABLE.
--- NOTE | 2018-11-07 07:23 | NUR ---
RECEIVED BEDSIDE REPORT FROM SMOKING TOBACCO PACKER HAND NURSE. PATIENT AOX4 AND COOPERATIVE. RESPIRATION EVEN AND UNLABORED ON ROOM AIR. DENIES PAIN. NO SIGNS OF DISTRESS NOTED. SKIN INTACT, WARM AND DRY. IV ON R FA 24G, PATENT AND INTACT, INFUSING PER MD ORDER. ABLE TO AMBULATE WITH STEADY GAIT. CONTINENT. PLAN OF CARE WAS DISCUSSED WITH PATIENT, AND PATIENT VERBALIZED OK. ALL SAFETY MEASURES ARE IN PLACE. INSTRUCTED PATIENT TO USE THE CALL LIGHT FOR ANY ASSISTANCE. PATIENT VERBALIZED OK. BED AT LOW POSITION. CALL LIGHT WITHIN REACH AND VERBALIZE ITS USE.
[2018-11-07 08:00] VITALS: BP 115/58
[2018-11-07] MEDS ORDERED: AZITHROMYCIN 500 MG in DEXTROSE 5% 250 ML IV SCH (09:00)
[2018-11-07] MEDS: FAMOTIDINE 20 MG TAB PO SCH (09:24)
[2018-11-07] MEDS: LACTOBACILLUS RHAMNOSUS GG 1 EACH CAP PO SCH (09:24)
[2018-11-07] MEDS: guaiFENesin 600 MG TABER PO SCH ×2 (09:24→20:21)
[2018-11-07] MEDS: FLUTICASONE NASAL 50 MCG/ACTUATION 16 GM BTL NS SCH (09:24)
--- NOTE | 2018-11-07 09:30 | NUR ---
ADMINISTERED MEDS PER MD ORDER, PATIENT TOLERATED WELL. DENIES PAIN AND SOB. PATIENT IS WATCHING ON BED AT THIS TIME. NO SIGNS OF DISTRESS NOTED.
--- NOTE | 2018-11-07 11:05 | NUR ---
COLLECTED NASAL INFLUENZA SWAB AND PROVIDED SPUTUM SPECIMEN CUP TO PATIENT. INSTRUCTED PATIENT TO SPIT INTO THE CUP WHEN SHE HAS ANY SPUTUM OR COUGH. PATIENT VERBALIZED UNDERSTANDING. PATIENT IS WATCHING TV ON BED. DENIES SOB. NO SIGNS OF DISTRESS NOTED.
[2018-11-07] MEDS ORDERED: methylPREDNISolone SS 40 MG/ML VIAL IVP SCH (13:00)
[2018-11-07] MEDS: NACL 0.9% 1,000 ML IV SCH (13:24)
--- NOTE | 2018-11-07 13:29 | NUR ---
PATIENT IS SITTING UP ON BED AND WATCHING TV. DENIES PAIN AND SOB. NO SIGNS OF DISTRESS NOTED. INSTRUCTED PATIENT TO SPIT INTO THE SPECIMEN CUP IF SHE HAS ANY. PATIENT VERBALIZED UNDERSTANDING.
[2018-11-07 14:00] LABS: MAGNESIUM 2.3 mg/dL (1.8-2.4); PHOSPHORUS 2.9 mg/dL (2.5-4.9)
--- NOTE | 2018-11-07 14:35 | NUR ---
PATIENT C/O THAT SHE FELT LIGHTHEADED. SHE SAID SHE DOES NOT NEED TO TAKE ANY INSULIN AT HOME AND NO ISSUE WITH HER GLUCOSE. CHECKED PATIENT'S BLOOD GLUCOSE AT THIS TIME AT BEDSIDE AND RECEIVED 315. DM EDUCATION PROVIDED TO PATIENT AND PATIENT VERBALIZED UNDERSTANDING. DR SANCHEZ CAME TO BEDSIDE AND EDUCATED PATIENT ON REGARDS OF DIABETES MELLITUS MANAGEMENT, DIET, AND EXERCISE. PATIENT WAS ACKNOWLEDGED AND AWARE.
--- NOTE | 2018-11-07 15:48 | NUR ---
DR AMADOR IS TALKING TO PATIENT AT BEDSIDE. NO SIGNS OF DISTRESS NOTED.
[2018-11-07 16:00] VITALS: BP 105/47
--- NOTE | 2018-11-07 16:39 | NUR ---
CHECKED PATIENT'S BLOOD GLUCOSE AND RECEIVED 254. PER PATIENT, SHE SAID SHE DOES NOT WANT TO GET ANY MORE INSULIN AND IT MAKES HER FEEL WORSE. PATIENT ALSO SAID THAT THIS IS TOO MUCH MEDICINE FOR ME. EDUCATED PATIENT ON BLOOD GLUCOSE MANAGEMENT. PATIENT VERBALIZED "OK, MAYBE MANANA."
--- NOTE | 2018-11-07 19:28 | NUR ---
ENDORSED PATIENT TO BULK STATION OPERATOR NURSE AT BEDSIDE. PATIENT IS IN A STABLE CONDITION.
--- NOTE | 2018-11-07 19:29 | NUR ---
RECD. SITTING ON BED, AWAKE, A/OX4. RESPIRATION EVEN AND UNLABORED, STILL WITH BILATERAL WHEEZES ON LUNG AUSCULTATION. IV OF NS AT 60 ML/HR INFUSING, RIGHT FOREARM G24. ON ROUTINE BREATHING TREATMENTS. PLAN OF CARE FOR THE SHIFT DISCUSSED. VERBALIZED UNDERSTANDING. DENIES PAIN 0/10.
--- NOTE | 2018-11-07 20:00 | NUR ---
Patient's Plan of Care was discussed and reviewed with TIRE FABRIC IMPREGNATING RANGE TENDER: SAIRA FONSECA
--- NOTE | 2018-11-07 20:05 | NUR ---
RECEIVED PATIENT ON ROOM AIR, PULSE OX SAT 97%. SCHEDULED BREATHING TREATMENTS ADMINISTERED. TOLERATED WELL, NO ADVERSE SIDE EFFECTS. ORAL RINSE DONE POST TX. NO RESPIRATORY DISTRESS NOTED AT THIS TIME. WILL CONTINUE TO MONITOR.
--- NOTE | 2018-11-07 20:21 | NUR ---
DUE PO MEDICATION GIVEN. SNACK GIVEN FOR THE NIGHT, REFUSED INSULIN COVERAGE. EXPLAINED IT'S IMPORTANCE, BUT STILL REFUSED. STATED SHE IS NOT DIABETIC AT HOME, ONLY IN THE HOSPITAL.
--- NOTE | 2018-11-07 20:30 | NUR ---
NEW SPUTUM SPECIMEN CUP GIVEN TO PATIENT, INSTRUCTED TO COUGH HARD AND EXPECTORATE PHLEGM, SALIVA IS NOT ACCEPTABLE. AGREED.
[2018-11-08] VITALS: BP 107/50
--- NOTE | 2018-11-08 | NUR ---
SLEEPING COMFORTABLY IN BED, NO RESPIRATORY DISTRESS NOTED.
--- NOTE | 2018-11-08 05:45 | NUR ---
SPUTUM SPECIMEN SENT TO LAB DID NOT QUALITY, MORE ON SALIVA, WILL ENDORSE TO AM NURSE TO TRY TO COLLECT AGAIN.
[2018-11-08] MEDS: NACL 0.9% 1,000 ML IV SCH (06:13)
[2018-11-08 06:17] LABS: HEMATOCRIT 32.3 % (36-48); HEMOGLOBIN 10.8 g/dL (12.0-16.0); LYMPHOCYTES # (AUTO) 2.6 K/uL (2.5-16.5); LYMPHOCYTES % (AUTO) 14.7 % (20.5-51.1); MEAN CORPUSCULAR HEMOGLOBIN 29 pg (27-31); MEAN CORPUSCULAR HGB CONC 34 g/dL (33-37); MEAN CORPUSCULAR VOLUME 87.3 fL (80-94); MONOCYTES # (AUTO) 1.1 K/uL (0.8-1.0); MONOCYTES % (AUTO) 6.6 % (1.7-9.3); NEUTROPHILS # (AUTO) 13.7 K/uL (1.8-7.7); NEUTROPHILS % (AUTO) 78.7 % (42.2-75.2); PLATELET COUNT (AUTO) 259 K/uL (140-450); RED CELL DISTRIBUTION WIDTH 15.2 % (11.6-13.7); WHITE BLOOD COUNT (AUTO) 17.4 K/uL (4.8-10.8)
[2018-11-08] MEDS: BLOOD GLUCOSE MONITORING 1 DEV DEV FS SCH ×2 (06:17→11:20)
[2018-11-08 06:32] LABS: ANION GAP 11.8 (8-16); CARBON DIOXIDE 26.1 mmol/L (21-32); CREATININE 0.6 mg/dL (0.6-1.3); POTASSIUM 3.9 mmol/L (3.5-5.1)
--- NOTE | 2018-11-08 07:30 | NUR ---
ENDORSED TO AM SHIFT NURSE FOR CONTINUITY OF CARE.
--- NOTE | 2018-11-08 07:31 | NUR ---
SBAR REPORT RECEIVED FROM NIGHT NURSE AT PT BEDSIDE. PATIENT RESTING IN BED, AWAKENS TO LIGHT STIMULI. ALERT AND ORIENTED. DENIES PAIN. ON ROOM AIR, NO ACUTE RESPIRATORY DISTRESS NOTED. CALL LIGHT WITHIN REACH.
[2018-11-08] MEDS: ALBUTEROL SULFATE/IPRATROPIU 3 ML SOL IH SCH ×2 (07:36→13:00)
[2018-11-08] MEDS: BUDESONIDE 0.25 MG/2 ML NEBU INH SCH (07:38)
[2018-11-08 08:00] VITALS: BP 110/56
[2018-11-08] MEDS ORDERED: LACT1CAP21 PO (08:29)
[2018-11-08] MEDS ORDERED: FLUT1DSK IH (08:29)
[2018-11-08] MEDS ORDERED: AZIT250T3 PO (08:29)
[2018-11-08] MEDS ORDERED: AZITHROMYCIN 250 MG in DEXTROSE 5% 250 ML IV SCH (09:00)
[2018-11-08] MEDS: FLUTICASONE NASAL 50 MCG/ACTUATION 16 GM BTL NS SCH (09:33)
[2018-11-08] MEDS: FAMOTIDINE 20 MG TAB PO SCH (09:34)
[2018-11-08] MEDS: LACTOBACILLUS RHAMNOSUS GG 1 EACH CAP PO SCH (09:34)
[2018-11-08] MEDS: guaiFENesin 600 MG TABER PO SCH (09:34)
--- NOTE | 2018-11-08 10:15 | NUR ---
PATIENT SEEN BY DR. MALDONADO AT BEDSIDE. UPDATED PATIENT ON CURRENT PLAN OF CARE. DR. CRUZ SPOKE WITH PATIENT REGARDING HOME MEDS AND FOLLOW UP PLAN OF CARE. ALL QUESTIONS AND CONCERNS MET WITH PATIENT. NO ACUTE DISTRESS NOTED.
[2018-11-08] MEDS ORDERED: PRED20TA5 PO (12:45)
[2018-11-08] MEDS ORDERED: PRED10TA5 PO (12:45)
[2018-11-08] MEDS ORDERED: MONT10TA35 PO (12:45)
[2018-11-08 13:30] VITALS: BP 110/56
[2018-11-08] MEDS ORDERED: GUAI-646 PO (13:36)
--- NOTE | 2018-11-08 14:00 | NUR ---
PATIENT DISCHARGE ORDERS RECEIVED, AWAITING PATIENT'S FAMILY FOR RIDE HOME. NO ACUTE DISTRESS NOTED.
--- NOTE | 2018-11-08 15:20 | NUR ---
PATIENT DISCHARGE INSTRUCTIONS GIVEN, VERBALIZED UNDERSTANDING. DISCHARGE MEDICATIONS TEACHING GIVEN. PATIENT REFUSED [facility] CONSULTANT, DR. CRUZ SPOKE TO PATIENT IN [place]ER[place] IN DETAIL REGARDING MEDICATIONS AND FOLLOW UP. SON AT BEDSIDE ABLE TO VERBALIZE UNDERSTANDING AND TRANSLATION. IV REMOVED, CANULA INTACT. PATIENT AMBULATORY, DENIES DISCOMFORT. ALL QUESTIONS AND CONCERNS MET WITH PATIENT. PATIENT DISCHARGED VIA WHEELCHAIR TO SON.
== END 2018-11-08 15:20 | disposition home or self-care (01) | DRG 141 ==
LOC: MED 01:26 → MTU 04:22
PROVIDERS: ADMIT General Practice; ATTEND General Practice
DX: J45.51 Severe persistent asthma with (acute) exacerbation (principal); E11.65 Type 2 diabetes mellitus with hyperglycemia; E87.6 Hypokalemia; D72.829 Elevated white blood cell count, unspecified; E66.9 Obesity, unspecified; I10 Essential (primary) hypertension; F43.9 Reaction to severe stress, unspecified; K59.00 Constipation, unspecified; T38.0X5A Adverse effect of glucocorticoids and synthetic analogues, initial encounter; Z79.899 Other long term (current) drug therapy; Z98.51 Tubal ligation status; Z83.3 Family history of diabetes mellitus; Y92.89 Other specified places as the place of occurrence of the external cause; Z68.28 Body mass index [BMI] 28.0-28.9, adult; Z79.84 Long term (current) use of oral hypoglycemic drugs
CPT/HCPCS: 36415; 71045; 80048; 80053; 80305; 81003; 82948; 83036; 83690; 83735; 83880; 84100; 84134; 84443; 85025; 85610; 85730; 87070; 87081; 87205; 87804; 93005; 94640; 94644; 96372; 99285; J0456; J0696; J1815; J2920; J2930; J3475; J7030; J7060; J7613; J7620; J7626; Q0092

== ENCOUNTER 2019-01-04 17:54 | Emergency (ER) | payer MEDICAID ==
[~2019-01-04] VITALS: Ht 149.9 cm; Wt 71.4 kg
[2019-01-04 17:54] VITALS: BP 113/60
[~2019-01-04 17:54] MED LIST changes: +ALBU0.0912 INH; +AZIT250T3 PO; -ESCI10TA PO; +FLUT1DSK IH; +GUAI-646 PO; +LACT1CAP21 PO; +MONT10TA35 PO; +PRED10TA5 PO; +PRED20TA5 PO
--- NOTE | 2019-01-04 17:54 | NUR ---
PATIENT BIBA WITH C/O SOB/CHEST PAIN 03/17, WHEEZING LUNG SOUNDS REINA, BREATHING TX GIVEN PER [facility], HX OF ASTHMA. DENIES N/V/D; SKIN IS PINK/WARM/DRY; VSS; PATIENT POSITIONED FOR COMFORT; HOB ELEVATED; BEDRAILS UP X2; BED DOWN. ER MD MADE AWARE OF PT STATUS.
--- NOTE | 2019-01-04 17:55 | NUR ---
Patient being evaluated by physician at bedside.
[2019-01-04] MEDS ORDERED: predniSONE 20 MG TAB PO ONE (18:05)
[2019-01-04 19:08] VITALS: BP 114/64
--- NOTE | 2019-01-04 19:08 | NUR ---
Patient discharged with v/s stable. Written and verbal after care instructions given and explained. All questions addressed prior to discharge. ID band removed. IV REMOVED. Rx of PREDNISONE given. Patient educated on indication of medication including possible reaction and side effects. Patient advised to follow up with PMD.
== END 2019-01-04 19:08 | disposition home or self-care (01) ==
LOC: MED 17:54
DX: J45.909 Unspecified asthma, uncomplicated (principal); F41.9 Anxiety disorder, unspecified; F32.9 Major depressive disorder, single episode, unspecified; M54.2 Cervicalgia; Z79.899 Other long term (current) drug therapy; Z79.2 Long term (current) use of antibiotics
CPT/HCPCS: 81002; 81025; 93005; 99283; J7512

== ENCOUNTER 2019-02-23 06:21 | Emergency (ER) | payer MEDICAID ==
[~2019-02-23] VITALS: Ht 157.5 cm; Wt 86.2 kg
[2019-02-23 06:25] VITALS: BP 119/67
--- NOTE | 2019-02-23 06:25 | NUR ---
TO BED # 11 AMBULATORY
--- NOTE | 2019-02-23 06:35 | NUR ---
ASSUMED CARE OF PT AT THIS TIME. C/O ACUTE ASTHMA EXACERBATION X 3 DAYS. PT STATES HER HOME ALBUTEROL NEB TREATMENTS ARE INEFFECTIVE. NO RESPIRATORY DISTRESS NOTED. PT SPEAKS IN FULL SENTENCES. C/O MID-EPIGASTRIC PAIN DESCRIBED , "BLOATING" X 1 DAY. PT DENIES ANY N/V/D. AAOX4 WITH EVEN AND STEADY GAIT; PATIENT STATES PAIN OF 7/10; VSS; PATIENT POSITIONED FOR COMFORT; HOB ELEVATED; BEDRAILS UP X2; BED DOWN. ER MD MADE AWARE OF PT STATUS. WILL CONTINUE TO MONITOR.
--- NOTE | 2019-02-23 07:15 | NUR ---
RECEIVED REPORT FROM MARY LINDSAY NURSE.
--- NOTE | 2019-02-23 07:27 | NUR ---
DR. GARCIA EVALUATING PATIENT AT THIS TIME.
[2019-02-23] MEDS ORDERED: predniSONE 20 MG TAB PO ONE (07:40)
[2019-02-23] MEDS ORDERED: ALBUTEROL SULFATE/IPRATROPIU 3 ML SOL IH ONE (07:40)
--- NOTE | 2019-02-23 07:42 | NUR ---
LAB AT BEDSIDE
--- NOTE | 2019-02-23 07:50 | NUR ---
RT AT BEDSIDE FOR BREATHING TREATMENT.
[2019-02-23 07:57] LABS: BASOPHILS # (AUTO) 0.1 K/uL (0.00-0.22); BASOPHILS % (AUTO) 0.8 % (0.0-2.0); EOSINOPHILS # (AUTO) 0.4 K/uL (0-0.4); EOSINOPHILS % (AUTO) 4.3 % (0.0-4.0); HEMATOCRIT 39.2 % (36-48); LYMPHOCYTES # (AUTO) 2.4 K/uL (2.5-16.5); LYMPHOCYTES % (AUTO) 28.1 % (20.5-51.1); MEAN CORPUSCULAR HEMOGLOBIN 29 pg (27-31); MEAN CORPUSCULAR HGB CONC 33 g/dL (33-37); MEAN CORPUSCULAR VOLUME 87.9 fL (80-94); MONOCYTES # (AUTO) 0.5 K/uL (0.8-1.0); MONOCYTES % (AUTO) 6.1 % (1.7-9.3); NEUTROPHILS # (AUTO) 5.2 K/uL (1.8-7.7); NEUTROPHILS % (AUTO) 60.7 % (42.2-75.2); PLATELET COUNT (AUTO) 238 K/uL (140-450); RED BLOOD CELL COUNT(AUTO) 4.46 MIL/uL (4.20-5.40); RED CELL DISTRIBUTION WIDTH 14.6 % (11.6-13.7); WHITE BLOOD COUNT (AUTO) 8.5 K/uL (4.8-10.8)
[2019-02-23 08:21] LABS: ALBUMIN 3.6 g/dL (3.4-5.0); ANION GAP 8.7 (8-16); CREATININE 0.5 mg/dL (0.6-1.3); POTASSIUM 3.7 mmol/L (3.5-5.1); TOTAL BILIRUBIN 0.4 mg/dL (0.0-1.0)
[2019-02-23] MEDS ORDERED: IBUPROFEN 600 MG TAB PO ONE (08:25)
[2019-02-23] MEDS ORDERED: ACETAMINOPHEN 325 MG TAB PO ONE (08:25)
--- NOTE | 2019-02-23 08:44 | NUR ---
Note undone in EDM - 02/23/19 at 0851 by MENDOZA Patient discharged with v/s stable. Written and verbal after care instructions given and explained. Patient alert, oriented and verbalized understanding of instructions. Ambulatory with steadygait. All questions addressed prior to discharge. ID band removed. Patient advised to follow up with PMD. Rx of Prednisone given. Patient educated on indication of medication including possible reaction and side effects. Opportunity to ask questions provided and answered.
[2019-02-23 09:07] VITALS: BP 108/48
--- NOTE | 2019-02-23 09:07 | NUR ---
Patient discharged with v/s stable. Written and verbal after care instructions given and explained. Patient alert, oriented and verbalized understanding of instructions. Ambulatory with steadygait. All questions addressed prior to discharge. ID band removed. Patient advised to follow up with PMD. Rx of Prednisone given. Patient educated on indication of medication including possible reaction and side effects. Opportunity to ask questions provided and answered.
== END 2019-02-23 09:07 | disposition home or self-care (01) ==
LOC: MED 06:21
DX: J01.90 Acute sinusitis, unspecified (principal); J20.9 Acute bronchitis, unspecified; B97.89 Other viral agents as the cause of diseases classified elsewhere; J45.909 Unspecified asthma, uncomplicated; Z79.899 Other long term (current) drug therapy
CPT/HCPCS: 36415; 71045; 80053; 81002; 81025; 85025; 94640; 99284; J7512; J7620; Q0092

== ENCOUNTER 2019-04-20 05:00 | Emergency (ER) | payer MEDICAID ==
[~2019-04-20] VITALS: Ht 160 cm; Wt 86.2 kg
--- NOTE | 2019-04-20 05:03 | NUR ---
PT TAKEN TO BED 4
[2019-04-20 05:05] VITALS: BP 113/60
--- NOTE | 2019-04-20 05:10 | NUR ---
43Y/O FEMALE, PRESENTED TO ED C/O DIFFICULTY BREATHING X1DAY, WORSENING SINCE LAST NIGHT. PT REPORTED TAKING ALBUTEROL INHALATION AND NEBULIZER WITH NO EFFECT. PT AAOX4, RR EVEN AND LABORED, NOTED WHEEZING UPON BILAT LUNG AUSCULTATION, WITH O2SAT AT 98% RA. DENIES N/V/FEVER/CHILLS. EDMD MADE AWARE, WILL CONTINUE TO MONITOR CLOSELY, BED LOCKED IN LOWEST POSITION, SIDERAILS UPX1. NKA PMH- ASTHMA, HTN
[2019-04-20] MEDS ORDERED: ALBUTEROL SULFATE/IPRATROPIU 3 ML SOL IH ONE (05:20)
[2019-04-20] MEDS ORDERED: DEXAMETHASONE 0.5 MG/5 ML ORASYR PO ONE (05:20)
--- NOTE | 2019-04-20 05:24 | NUR ---
Respiratory Therapist at bedside for respiratory intervention.
[2019-04-20] MEDS ORDERED: DEXAMETHASONE 4 MG TAB PO ONE (05:45)
[2019-04-20] MEDS ORDERED: DEXAMETHASONE 4 MG TAB ONE (05:53)
[2019-04-20 06:44] VITALS: BP 123/61
--- NOTE | 2019-04-20 06:44 | NUR ---
Patient discharged with v/s stable. Written and verbal after care instructions given and explained. Patient alert, oriented and verbalized understanding of instructions. Ambulatory with steady gait. All questions addressed prior to discharge. ID band removed. Patient advised to follow up with PMD. Rx of VENTOLIN HFA 90MCG/ACTUATION INHALATION AEROSOL given. Patient educated on indication of medication including possible reaction and side effects. Opportunity to ask questions provided and answered.
== END 2019-04-20 06:44 | disposition home or self-care (01) ==
LOC: MED 05:00
DX: J45.901 Unspecified asthma with (acute) exacerbation (principal); Z79.899 Other long term (current) drug therapy; Z79.2 Long term (current) use of antibiotics; Z79.51 Long term (current) use of inhaled steroids
CPT/HCPCS: 94640; 99283; J7620

== ENCOUNTER 2019-06-18 01:32 | Emergency (ER) | payer MEDICAID ==
[~2019-06-18] VITALS: Ht 149.9 cm; Wt 89.4 kg
[2019-06-18 01:40] VITALS: BP 122/71
--- NOTE | 2019-06-18 01:40 | NUR ---
43 Y/O FEMALE C/O DIFFICULTY BREATHING X3 DAYS. AUDIBLE WHEEZING HEARD ALL THROUGHOUT LUNG WARREN (ANTERIOR/POSTERIOR) BILATERALLY. O2 SATURATION AT 97% RA. ABLE TO SPEAK IN FULL SENTENCES; DENIES N/V/D. PER PATIENT'S SON, "IT FEELS LIKE I CAN'T CLEAR MY THROAT". ERMD MADE AWARE. PULSE OXIMETER PLACED. AND SON AT BEDSIDE. WILL CONTINUE TO MONITOR. KAREN HARRIS- MARIE
[2019-06-18] MEDS ORDERED: ALBUTEROL SULFATE/IPRATROPIU 3 ML SOL IH ONE (01:55)
[2019-06-18] MEDS ORDERED: methylPREDNISolone SS 125 MG/2 ML VIAL IM ONE (01:55)
[2019-06-18] MEDS ORDERED: PHENYLEPHRINE 0.5% 15 ML BTL NS ONE (02:25)
--- NOTE | 2019-06-18 02:58 | NUR ---
PT APPEARS TO BE IN NO DISTRESS. PT ABLE TO SPEAK FULL SENTENCES. PT DOES NOT APPEAR TO BE SOB AT THIS TIME. Patient discharged with v/s stable. Written and verbal after care instructions given and explained. Patient alert, oriented and verbalized understanding of instructions. Ambulatory with steady gait. All questions addressed prior to discharge. ID band removed. Patient advised to follow up with PMD. Rx of ALBUTEROL, MUCINEX, PRENISONE given. Patient educated on indication of medication including possible reaction and side effects. Opportunity to ask questions provided and answered.
[2019-06-18 03:00] VITALS: BP 124/72
== END 2019-06-18 03:00 | disposition home or self-care (01) ==
LOC: MED 01:32
DX: J45.901 Unspecified asthma with (acute) exacerbation (principal); J30.9 Allergic rhinitis, unspecified; I10 Essential (primary) hypertension; Z79.899 Other long term (current) drug therapy; Z79.2 Long term (current) use of antibiotics; Z79.51 Long term (current) use of inhaled steroids
CPT/HCPCS: 94640; 96372; 99283; J2930; J7620

== ENCOUNTER 2019-11-28 20:05 | Emergency (ER) | payer MEDICAID ==
[~2019-11-28] VITALS: Ht 162.6 cm; Wt 97.5 kg
[2019-11-28 20:10] VITALS: BP 118/69
--- NOTE | 2019-11-28 20:20 | NUR ---
44 YO F BIB SELF FOR C/C OF SOB X2 DAYS. PT HAS ASTHMA AND HAS BEEN TAKING PROAIR WITH NO RELIEF OF SYMPTOMS. PT STATES SHE TOOK HER INHALER 20 MIN BEFORE ARRIVAL. WHEEZES HEARD IN UPPER LOBES BILATERALLY. RESPIRATIONS ARE EVEN AND UNLABORED. PT STATES HSE HAS HAD A NONPRODUCTIVE COUGH X2 DAYS. VSS. PULSE OX PLACED ON PT. PT DENIES TRAVEL, FEVER, N/V/D. SIDE RAILS X1. NKA MED HX: ASTHMA MEDS: PROAIR
--- NOTE | 2019-11-28 20:43 | NUR ---
ERMD AT BEDSIDE EVALUATING PT
[2019-11-28] MEDS ORDERED: ALBUTEROL SULFATE/IPRATROPIU 3 ML SOL IH ONE (20:55)
[2019-11-28] MEDS ORDERED: methylPREDNISolone SS 125 MG/2 ML VIAL IM ONE (20:55)
--- NOTE | 2019-11-28 20:58 | NUR ---
CALLED RT FOR JULIA.
--- NOTE | 2019-11-28 21:15 | NUR ---
RT AT BEDSIDE ADMINISTERING BREATHING TREATMENT
[2019-11-28] MEDS ORDERED: IBUPROFEN 800 MG TAB PO ONE (21:20)
--- NOTE | 2019-11-28 21:28 | NUR ---
RAD AT BEDSIDE
[2019-11-28 22:40] VITALS: BP 121/65
== END 2019-11-28 22:40 | disposition home or self-care (01) ==
LOC: MED 20:05
DX: J45.901 Unspecified asthma with (acute) exacerbation (principal); Z79.899 Other long term (current) drug therapy
CPT/HCPCS: 71045; 93005; 94640; 94729; 96372; 99283; J2930; Q0092

== ENCOUNTER 2020-01-28 13:50 | Emergency (ER) | payer MEDICAID ==
[~2020-01-28] VITALS: Ht 149.9 cm; Wt 90.7 kg
[2020-01-28 14:13] VITALS: BP 118/87
--- NOTE | 2020-01-28 15:55 | NUR ---
pt amb to er bed 2
[2020-01-28 15:56] LABS: BASOPHILS % (AUTO) 0.5 % (0.0-2.0); EOSINOPHILS # (AUTO) 0.4 K/uL (0-0.4); EOSINOPHILS % (AUTO) 4.5 % (0.0-4.0); HEMATOCRIT 38.2 % (36-48); HEMOGLOBIN 12.9 g/dL (12.0-16.0); LYMPHOCYTES # (AUTO) 2.2 K/uL (2.5-16.5); LYMPHOCYTES % (AUTO) 26.1 % (20.5-51.1); MEAN CORPUSCULAR HEMOGLOBIN 30 pg (27-31); MEAN CORPUSCULAR HGB CONC 34 g/dL (33-37); MEAN CORPUSCULAR VOLUME 89.2 fL (80-94); MONOCYTES # (AUTO) 0.6 K/uL (0.8-1.0); MONOCYTES % (AUTO) 7.3 % (1.7-9.3); NEUTROPHILS # (AUTO) 5.2 K/uL (1.8-7.7); NEUTROPHILS % (AUTO) 61.6 % (42.2-75.2); PLATELET COUNT (AUTO) 264 K/uL (140-450); RED BLOOD CELL COUNT(AUTO) 4.29 MIL/uL (4.20-5.40); RED CELL DISTRIBUTION WIDTH 13.9 % (11.6-13.7); WHITE BLOOD COUNT (AUTO) 8.5 K/uL (4.8-10.8)
[2020-01-28 15:56] LABS: BILIRUBIN,URINE 1+ (NEGATIVE); BLOOD, URINE 1+ (NEGATIVE); COLOR,URINE YELLOW (YELLOW); LEUKOCYTE ESTERASE ,URINE 1+ (NEGATIVE); NITRITE, URINE NEGATIVE (NEGATIVE); PH,URINE 6.5 (5.0-9.0); UGLUCOSE NEGATIVE (NEGATIVE)
[2020-01-28 16:02] LABS: APPEARANCE,URINE CLOUDY (CLEAR)
--- NOTE | 2020-01-28 16:05 | NUR ---
44 Y/O FEMALE FROM HOME C/O FATIGUE WITH MILD SOB X 1 WK. PT STATES SHE HAS BEEN USING INHALER WITH NO RELIEF. RR EVEN AND UNLABORED. AFEBRILE AT THIS TIME. DENIES CHEST PAIN. DENIES N/V/D. AWAKE AND ALERT, POSITIONED FOR COMFORT. HOB ELEVATED.
[2020-01-28 16:18] LABS: ALBUMIN 3.8 g/dL (3.4-5.0); ANION GAP 11.1 (8-16); CARBON DIOXIDE 28.5 mmol/L (21-32); CREATININE 0.6 mg/dL (0.6-1.3); POTASSIUM 3.6 mmol/L (3.5-5.1); TOTAL BILIRUBIN 0.4 mg/dL (0.0-1.0)
[2020-01-28 16:29] LABS: RBC,URINE 0-5 /HPF (0-5)
--- NOTE | 2020-01-28 16:30 | NUR ---
DR MOORE AT BEDSIDE EXAMINING PT
[2020-01-28 17:06] VITALS: BP 116/84
--- NOTE | 2020-01-28 17:07 | NUR ---
Patient discharged with v/s stable. Written and verbal after care instructions given and explained. Patient alert, oriented and verbalized understanding of instructions. Ambulatory with steady gait. All questions addressed prior to discharge. ID band removed. Patient advised to follow up with PMD. Rx of PREDNISONE 20MG, FLONASE 50MCG, AND KEFLEX 500MG given. Patient educated on indication of medication including possible reaction and side effects. Opportunity to ask questions provided and answered.
== END 2020-01-28 17:07 | disposition home or self-care (01) ==
LOC: MED 13:50
DX: J45.901 Unspecified asthma with (acute) exacerbation (principal); N39.0 Urinary tract infection, site not specified; Z79.899 Other long term (current) drug therapy
CPT/HCPCS: 36415; 71045; 80053; 81001; 84484; 85025; 85610; 87086; 93005; 99285

== ENCOUNTER 2020-03-29 18:43 | Emergency (ER) | payer MEDICAID ==
[~2020-03-29] VITALS: Ht 149.9 cm; Wt 90.7 kg
[2020-03-29 18:56] VITALS: BP 124/80
[2020-03-29] MEDS ORDERED: ALBUTEROL HFA MDI 90 MCG/ACTUATION 8 GM INH ONE (19:10)
[2020-03-29] MEDS ORDERED: predniSONE 20 MG TAB PO ONE (19:10)
--- NOTE | 2020-03-29 19:19 | NUR ---
Dr. Dotson examining patient.
--- NOTE | 2020-03-29 19:27 | NUR ---
XRAY AT BEDSIDE
--- NOTE | 2020-03-29 19:30 | NUR ---
Respiratory Therapist at bedside for respiratory intervention.
--- NOTE | 2020-03-29 19:44 | NUR ---
PT GIVEN 2XPUFF ALB PT TOLERATED WELL SPO2 98% HR 94 ON RA B/S WHEEZE BILAT B/S CLEAR AFTER 2x PUFF MDI
[2020-03-29 20:38] VITALS: BP 124/80
--- NOTE | 2020-03-29 20:38 | NUR ---
Patient discharged with v/s stable. Written and verbal after care instructions given and explained. Patient alert, oriented and verbalized understanding of instructions. Ambulatory with steady gait. All questions addressed prior to discharge. ID band removed. Patient advised to follow up with PMD. Rx of IBUPROFEN, PREDNISONE, TESSALON PERLES given. Patient educated on indication of medication including possible reaction and side effects. Opportunity to ask questions provided and answered.
--- NOTE | 2020-03-29 20:38 | NUR ---
ATMOSPHERIC PHYSICIST USED VIA TELPHONE [id number]. ALL QUESTIONS AND CONCERNS ANSWERED AT THIS TIME.
== END 2020-03-29 20:38 | disposition home or self-care (01) ==
LOC: MED 18:43
DX: J45.901 Unspecified asthma with (acute) exacerbation (principal); Z79.899 Other long term (current) drug therapy
CPT/HCPCS: 71045; 93005; 99283; J7512

== ENCOUNTER 2020-05-31 01:05 | Emergency (ER) | payer MEDICAID ==
[~2020-05-31] VITALS: Ht 144.8 cm; Wt 91.6 kg
[2020-05-31 01:16] VITALS: BP 119/61
--- NOTE | 2020-05-31 01:24 | NUR ---
PT AMBULATED TO BED 1 WITH STEADY GAIT.
--- NOTE | 2020-05-31 01:25 | NUR ---
PT 89 Y/O FEMALE BIB SELF FOR C/O SOB X 3 DAYS. PER PT SHE HAS BEEN FEELING INTERMITTENT SOB X 3 DAYS EVEN AFTER USING INHALER AT HOME. WHEEZING IN BILAT UPPER LOBES NOTED. PT RESPIRATIONS ARE EVEN AND UNLABORED. O2SAT@ 99% ON RA. PT NOTED WITH DRY COUGH AND STATED HAS BEEN PRESENT X 3 DAYS. PT STATES, "SHONDA BEEN FEELING A LITTLE WEAK FOR THE PAST THREE DAYS WELL. AFEBRILE. DENIES N/V/D. PT PLACED ON MARKER DELIVERY. MEDHX: ASTHMA ALLERGIES: NKA
--- NOTE | 2020-05-31 01:35 | NUR ---
ERMD AT BEDSIDE EVALUATING PT.
--- NOTE | 2020-05-31 01:37 | NUR ---
EKG BEING PERFORMED BY KALEB BETHEA.
[2020-05-31] MEDS ORDERED: methylPREDNISolone SS 125 MG in WATER STERILE 2 ML IM ONE (01:40)
[2020-05-31] MEDS ORDERED: ALBUTEROL SULFATE/IPRATROPIU 3 ML SOL IH ONE (01:40)
[2020-05-31] MEDS ORDERED: methylPREDNISolone SS 125 MG/2 ML VIAL ONE (01:49)
[2020-05-31] MEDS ORDERED: WATER STERILE 10 ML MC ONE (01:50)
--- NOTE | 2020-05-31 01:51 | NUR ---
RT AT BEDSIDE.
[2020-05-31 02:25] VITALS: BP 112/72
--- NOTE | 2020-05-31 02:25 | NUR ---
Patient discharged with v/s stable. Written and verbal after care instructions given and explained. Patient alert, oriented and verbalized understanding of instructions. Ambulatory with steady gait. All questions addressed prior to discharge. ID band removed. Patient advised to follow up with PMD. Rx of GUAIFENESIN, PREDNISONE, ALBUTEROL, NEBULIZER SYSTEM given. Patient educated on indication of medication including possible reaction and side effects. Opportunity to ask questions provided and answered.
== END 2020-05-31 02:25 | disposition home or self-care (01) ==
LOC: MED 01:05
DX: J45.901 Unspecified asthma with (acute) exacerbation (principal)
CPT/HCPCS: 93005; 94640; 96372; 99291; J2930

== ENCOUNTER 2020-07-30 13:14 | Emergency (ER) | payer MEDICAID ==
[~2020-07-30] VITALS: Ht 154.9 cm; Wt 77.1 kg
[2020-07-30 13:38] VITALS: BP 119/50
--- NOTE | 2020-07-30 13:43 | NUR ---
PT SENT TO LOBBY TO WAIT FOR AVAILABLE BED.
[2020-07-30] MEDS ORDERED: methylPREDNISolone SS 125 MG in WATER STERILE 2 ML IM ONE (13:55)
[2020-07-30] MEDS ORDERED: ALBUTEROL SULFATE/IPRATROPIU 3 ML SOL IH ONE (13:55)
[2020-07-30] MEDS ORDERED: methylPREDNISolone SS 125 MG/2 ML VIAL ONE (14:01)
[2020-07-30] MEDS ORDERED: WATER STERILE 10 ML MC ONE (14:01)
[2020-07-30 14:52] VITALS: BP 119/50
--- NOTE | 2020-07-30 14:52 | NUR ---
Pt discharged by [address]. All paperwork handed to pt by LU[address]S.
== END 2020-07-30 14:52 | disposition home or self-care (01) ==
LOC: MED 13:14
DX: J45.909 Unspecified asthma, uncomplicated (principal); Z79.899 Other long term (current) drug therapy
CPT/HCPCS: 71045; 94640; 96372; 99284; J2930

== ENCOUNTER 2021-01-05 23:01 | Emergency (ER) | payer MEDICAID ==
[~2021-01-05] VITALS: Ht 157.5 cm; Wt 86.2 kg
[2021-01-05 23:07] VITALS: BP 132/82
--- NOTE | 2021-01-05 23:07 | NUR ---
TO BED AMBULATORY
--- NOTE | 2021-01-05 23:10 | NUR ---
45/F BIB SELF COMPLAINING OF RIGHT SHOULDER PAIN X1 WEEK. PT DESCRIBES PAIN SHARP, CONSTANT, NON-RADIATING, 10/10. PT DENIES ANY TRAUMA, HEAVY LIFTING, NUMBNESS, TINGLING. UPON INSPECTION, NO BRUISING OR SWELLING NOTED. PMH: ASTHMA, PRE-DIABETIC, ANXIETY NKDA
--- NOTE | 2021-01-05 23:18 | NUR ---
RADIOLOGY AT BEDSIDE
[2021-01-05] MEDS ORDERED: ACETAMINOPHEN EXTRA STRENGTH 500 MG TAB PO ONE (23:50)
[2021-01-05] MEDS ORDERED: IBUPROFEN 600 MG TAB PO ONE (23:50)
--- NOTE | 2021-01-06 01:05 | NUR ---
NETWORK COORDINATOR SERVICES UTILIZED. NETWORK COORDINATOR ID #: [id number] NAME: TIMUR
[2021-01-06] MEDS ORDERED: IBUP-2213 PO (01:24)
[2021-01-06 01:35] VITALS: BP 132/82
== END 2021-01-06 01:35 | disposition home or self-care (01) ==
LOC: MED 23:01
DX: M25.511 Pain in right shoulder (principal); J45.909 Unspecified asthma, uncomplicated; F41.9 Anxiety disorder, unspecified; Z79.899 Other long term (current) drug therapy
CPT/HCPCS: 73030; 99283

== ENCOUNTER 2021-07-16 20:16 | Emergency (ER) | payer MEDICAID ==
[~2021-07-16] VITALS: Ht 157.5 cm; Wt 90.7 kg
[~2021-07-16 20:16] MED LIST changes: +IBUP-2213 PO
[2021-07-16 20:31] VITALS: BP 134/68
[2021-07-16] MEDS ORDERED: LIDOCAINE MPF 1% 10 MG/ML VIAL INJ ONE (21:55)
[2021-07-16] MEDS ORDERED: BACITRACIN OINT 500 UNITS/GM PKT TP ONE ×2 (22:05→22:08)
[2021-07-16] MEDS ORDERED: NAPR-54 PO (22:25)
[2021-07-16] MEDS ORDERED: IBUPROFEN 600 MG TAB PO ONE (22:35)
[2021-07-16 22:45] VITALS: BP 134/68
--- NOTE | 2021-07-16 22:50 | NUR ---
MEDICATED ORDERED FOR PAIN
== END 2021-07-16 22:45 | disposition home or self-care (01) ==
LOC: MED 20:16
DX: S60.121A Contusion of right index finger with damage to nail, initial encounter (principal); J45.909 Unspecified asthma, uncomplicated; Z79.899 Other long term (current) drug therapy; W23.0XXA Caught, crushed, jammed, or pinched between moving objects, initial encounter; Y93.89 Activity, other specified; Y92.89 Other specified places as the place of occurrence of the external cause; Y99.8 Other external cause status
CPT/HCPCS: 11730; 99284; J2001

== ENCOUNTER 2021-08-14 01:40 | Emergency (ER) | payer MEDICAID ==
[~2021-08-14] VITALS: Ht 160 cm; Wt 86.2 kg
[~2021-08-14 01:40] MED LIST changes: +NAPR-54 PO
[2021-08-14 01:50] VITALS: BP 119/70
--- NOTE | 2021-08-14 01:53 | NUR ---
TO LOBBY A/W BED AMBULATORY
--- NOTE | 2021-08-14 02:30 | NUR ---
SEEN AND EXAMINED BY ISAIAS, WITH ORDERS AND CARRIED OUT
[2021-08-14] MEDS ORDERED: ALBUTEROL HFA MDI 90 MCG/ACTUATION 8 GM INH ONE (02:35)
[2021-08-14] MEDS ORDERED: cefTRIAXone 1,000 MG in LIDOCAINE MPF 1% 2.1 ML IM ONE (02:35)
[2021-08-14] MEDS ORDERED: methylPREDNISolone SS 125 MG in WATER STERILE 2 ML IM ONE (02:35)
[2021-08-14] MEDS ORDERED: WATER STERILE 10 ML MC ONE (02:45)
--- NOTE | 2021-08-14 02:45 | NUR ---
MEDICATED PER ERMDS ORDER, TOLERATED WELL.
[2021-08-14] MEDS ORDERED: methylPREDNISolone SS 125 MG/2 ML VIAL ONE (02:46)
[2021-08-14] MEDS ORDERED: LIDOCAINE MPF 1% 5 ML ONE (02:47)
--- NOTE | 2021-08-14 03:00 | NUR ---
SWAB FO MOIRA SENT TO LAB
[2021-08-14] MEDS ORDERED: cefTRIAXone 1,000 MG VIAL ONE (03:01)
[2021-08-14] MEDS ORDERED: AMOX-1000 PO (03:14)
[2021-08-14] MEDS ORDERED: BENZ200C4 PO (03:14)
[2021-08-14] MEDS ORDERED: ALBU0.0912 IH (03:14)
[2021-08-14] MEDS ORDERED: PRED20TA5 PO (03:14)
[2021-08-14 03:35] VITALS: BP 119/70
--- NOTE | 2021-08-14 03:35 | NUR ---
Patient discharged with v/s stable. Written and verbal after care instructions given and explained. Patient alert, oriented and verbalized understanding of instructions. Ambulatory with steady gait. All questions addressed prior to discharge. ID band removed. Patient advised to follow up with PMD. Rx of COLACE given. Patient educated on indication of medication including possible reaction and side effects. Opportunity to ask questions provided and answered.
== END 2021-08-14 03:35 | disposition home or self-care (01) ==
LOC: MED 01:40
DX: U07.1 COVID-19 (principal); J04.0 Acute laryngitis; B96.89 Other specified bacterial agents as the cause of diseases classified elsewhere; J45.909 Unspecified asthma, uncomplicated; Z79.899 Other long term (current) drug therapy; Z79.2 Long term (current) use of antibiotics; Z79.51 Long term (current) use of inhaled steroids; Z79.1 Long term (current) use of non-steroidal anti-inflammatories (NSAID)
CPT/HCPCS: 71045; 87426; 94664; 96372; 99284; J0696; J2001; J2930

== ENCOUNTER 2022-02-06 02:54 | Emergency (ER) | payer MEDICAID ==
[~2022-02-06] VITALS: Ht 152.4 cm; Wt 83.9 kg
[~2022-02-06 02:54] MED LIST changes: +ALBU0.0912 IH; +AMOX-1000 PO; -AZIT250T3 PO; +BENZ200C4 PO; -GUAI-646 PO; +MUC600 PO; -PRED10TA5 PO
[2022-02-06 03:13] VITALS: BP 142/78
--- NOTE | 2022-02-06 03:16 | NUR ---
PT TAKEN TO BED 06.
--- NOTE | 2022-02-06 03:19 | NUR ---
46 YO F BIB WITH C/C OF 8/10 CHEST PRESSURE RAD TO BACK X3DAYS. REPORTS FEELING ANXIOUS. REPORTS DECREASED SLEEP. STATES SHE HAS HX OF ANXIETY, FEELS LIKE SHE CANT CONTROL THE ANXIETY ANYMORE. KAREN
[2022-02-06] MEDS ORDERED: ASPIRIN 325 MG TAB PO ONE (03:30)
[2022-02-06] MEDS ORDERED: NITROGLYCERIN 0.4 MG TAB SL ONE ×2 (03:30→03:33)
[2022-02-06] MEDS ORDERED: LORazepam 1 MG TAB PO ONE (03:30)
--- NOTE | 2022-02-06 04:10 | NUR ---
blood draws taken to lab
--- NOTE | 2022-02-06 04:10 | NUR ---
pt resting in supine position. x2 side rails up. bed lowered
[2022-02-06 04:15] LABS: BASOPHILS # (AUTO) 0.1 K/uL (0.00-0.22); BASOPHILS % (AUTO) 0.6 % (0.0-2.0); EOSINOPHILS # (AUTO) 0.3 K/uL (0-0.4); EOSINOPHILS % (AUTO) 2.8 % (0.0-4.0); HEMATOCRIT 42.6 % (36-48); HEMOGLOBIN 14.3 g/dL (12.0-16.0); LYMPHOCYTES # (AUTO) 2.9 K/uL (2.5-16.5); LYMPHOCYTES % (AUTO) 32.3 % (20.5-51.1); MEAN CORPUSCULAR HEMOGLOBIN 29 pg (27-31); MEAN CORPUSCULAR HGB CONC 34 g/dL (33-37); MEAN CORPUSCULAR VOLUME 86.9 fL (80-94); MONOCYTES # (AUTO) 0.6 K/uL (0.8-1.0); MONOCYTES % (AUTO) 6.7 % (1.7-9.3); NEUTROPHILS # (AUTO) 5.2 K/uL (1.8-7.7); NEUTROPHILS % (AUTO) 57.6 % (42.2-75.2); PLATELET COUNT (AUTO) 201 K/uL (140-450); RED CELL DISTRIBUTION WIDTH 14.6 % (11.6-13.7)
[2022-02-06 04:40] LABS: ALBUMIN 3.6 g/dL (3.4-5.0); ANION GAP 10.1 (8-16); ASPARTATE AMINOTRANSFERASE 38 U/L (15-37); CARBON DIOXIDE 27.5 mmol/L (21-32); CHLORIDE 102 mmol/L (98-107); CREATININE 0.4 mg/dL (0.6-1.3); GFR ARICAN-AMERICAN 223 mL/min (>90); GLUCOSE 288 mg/dL (74-106); POTASSIUM 3.6 mmol/L (3.5-5.1); SODIUM SERUM 136 mmol/L (136-145); TOTAL BILIRUBIN 0.4 mg/dL (0.0-1.0); UREA NITROGEN, BLOOD 13 mg/dL (7-18)
[2022-02-06] MEDS ORDERED: HYDR-1093 PO (04:59)
--- NOTE | 2022-02-06 05:30 | NUR ---
The patient's care was reviewed and supervised by Minoo Farias RN, RN.
[2022-02-06 05:42] VITALS: BP 115/40
--- NOTE | 2022-02-06 05:42 | NUR ---
Patient discharged with v/s stable. Written and verbal after care instructions given and explained. Patient alert, oriented and verbalized understanding of instructions. Ambulatory with steady gait. All questions addressed prior to discharge. ID band removed. Patient advised to follow up with PMD. Rx of HYDROXINE given. Opportunity to ask questions provided and answered.
== END 2022-02-06 05:42 | disposition home or self-care (01) ==
LOC: MED 02:54
DX: R07.89 Other chest pain (principal); E11.9 Type 2 diabetes mellitus without complications; I10 Essential (primary) hypertension; F41.9 Anxiety disorder, unspecified; E66.01 Morbid (severe) obesity due to excess calories; J45.909 Unspecified asthma, uncomplicated; Z79.4 Long term (current) use of insulin; Z79.899 Other long term (current) drug therapy
CPT/HCPCS: 36415; 71045; 80053; 84484; 85025; 93005; 99285; Q0092

== ENCOUNTER 2022-03-28 01:11 | Emergency (ER) | payer MEDICAID ==
[~2022-03-28] VITALS: Ht 147.3 cm; Wt 83.9 kg
[~2022-03-28 01:11] MED LIST changes: +HYDR-1093 PO
[2022-03-28 01:20] VITALS: BP 123/66
--- NOTE | 2022-03-28 01:26 | NUR ---
Patient ambulated to bed 1.
[2022-03-28] MEDS ORDERED: PRED20TA5 PO (01:54)
[2022-03-28] MEDS ORDERED: IBUP-2213 PO (01:54)
--- NOTE | 2022-03-28 02:11 | NUR ---
Dr. Candelario examining patient.
[2022-03-28] MEDS ORDERED: IBUPROFEN 800 MG TAB PO ONE (02:15)
[2022-03-28 02:26] VITALS: BP 123/66
--- NOTE | 2022-03-28 02:26 | NUR ---
Patient discharged with v/s stable. Written and verbal after care instructions given and explained. Patient verbalized understanding. Ambulatory with steady gait. All questions addressed prior to discharge. Advised to follow up with PMD.
== END 2022-03-28 02:26 | disposition home or self-care (01) ==
LOC: MED 01:11
DX: J02.9 Acute pharyngitis, unspecified (principal); J45.909 Unspecified asthma, uncomplicated; E11.9 Type 2 diabetes mellitus without complications; Z79.4 Long term (current) use of insulin; Z79.899 Other long term (current) drug therapy
CPT/HCPCS: 99282; 99283

== ENCOUNTER 2022-05-29 16:21 | Emergency (ER) | payer MEDICAID ==
[~2022-05-29] VITALS: Ht 160 cm; Wt 78.5 kg
[2022-05-29 16:38] VITALS: BP 124/65
[2022-05-29] MEDS ORDERED: ALUMINUM HYD/MAG/SIMETHICONE 30 ML UDC PO ONE (17:45)
--- NOTE | 2022-05-29 18:11 | NUR ---
PT BROUGHT BACK FROM [facility] VIA WHEELCHAIR
--- NOTE | 2022-05-29 18:11 | NUR ---
JUSTIN Vasquez ASSISTED TO ER BED 8 FROM RAD
--- NOTE | 2022-05-29 18:17 | NUR ---
46YO FEMALE PT BIBA FROM [facility] C/O PRESSURED CHEST PAIN AND EPIGASTRIC "PULSATING" X1WEEK. STATES CHEST PAIN EPISODES THAT LAST 1-2HRS W/ RADIATION TO MID BACK. NOTES "PULSATING" IN FEET . STATES CHECKING BS PRIOR TO ARRIVAL - "BS 69 ". DENIES N/V/D, FEVER OR CHILLS. PT AAOX4, RESPIRATIONS EVEN AND UNLABORED. 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 CITIZEN OF [place] SPEAKING PMH: DM, HTN, ASTHMA NKA
[2022-05-29 19:00] LABS: BASOPHILS # (AUTO) 0.1 K/uL (0.00-0.22); BASOPHILS % (AUTO) 0.5 % (0.0-2.0); EOSINOPHILS # (AUTO) 0.1 K/uL (0-0.4); EOSINOPHILS % (AUTO) 1.1 % (0.0-4.0); HEMATOCRIT 37.6 % (36-48); HEMOGLOBIN 12.8 g/dL (12.0-16.0); LYMPHOCYTES # (AUTO) 2.6 K/uL (2.5-16.5); LYMPHOCYTES % (AUTO) 21.2 % (20.5-51.1); MEAN CORPUSCULAR HEMOGLOBIN 30 pg (27-31); MEAN CORPUSCULAR HGB CONC 34 g/dL (33-37); MEAN CORPUSCULAR VOLUME 88.8 fL (80-94); MONOCYTES # (AUTO) 0.7 K/uL (0.8-1.0); MONOCYTES % (AUTO) 5.6 % (1.7-9.3); NEUTROPHILS # (AUTO) 8.6 K/uL (1.8-7.7); NEUTROPHILS % (AUTO) 71.6 % (42.2-75.2); PLATELET COUNT (AUTO) 273 K/uL (140-450); RED BLOOD CELL COUNT(AUTO) 4.24 MIL/uL (4.20-5.40); RED CELL DISTRIBUTION WIDTH 14.2 % (11.6-13.7); WHITE BLOOD COUNT (AUTO) 12.1 K/uL (4.8-10.8)
--- NOTE | 2022-05-29 19:16 | NUR ---
REPORT GIVEN TO LUIS A MANUEL . TRANSFER OF CARE AT THIS TIME
[2022-05-29 19:24] LABS: ALBUMIN 3.5 g/dL (3.4-5.0); ANION GAP 12.7 (8-16); ASPARTATE AMINOTRANSFERASE 23 U/L (15-37); CARBON DIOXIDE 28.2 mmol/L (21-32); CHLORIDE 103 mmol/L (98-107); CREATININE 0.6 mg/dL (0.6-1.3); GFR ARICAN-AMERICAN 140 mL/min (>90); GLUCOSE 156 mg/dL (74-106); POTASSIUM 3.9 mmol/L (3.5-5.1); SODIUM SERUM 140 mmol/L (136-145); TOTAL BILIRUBIN 0.3 mg/dL (0.0-1.0); UREA NITROGEN, BLOOD 13 mg/dL (7-18)
[2022-05-29] MEDS ORDERED: ALBU0.0912 INH (19:44)
[2022-05-29 19:48] LABS: APPEARANCE,URINE CLEAR (CLEAR); BILIRUBIN,URINE NEGATIVE (NEGATIVE); BLOOD, URINE NEGATIVE (NEGATIVE); LEUKOCYTE ESTERASE ,URINE NEGATIVE (NEGATIVE); NITRITE, URINE NEGATIVE (NEGATIVE); UGLUCOSE NEGATIVE (NEGATIVE)
[2022-05-29 19:54] LABS: COLOR,URINE COLORLESS (YELLOW)
[2022-05-29 20:18] VITALS: BP 113/55
[2022-05-29] MEDS ORDERED: ATA25 PO (23:48)
[2022-05-29] MEDS ORDERED: IBUP-2213 PO (23:48)
== END 2022-05-29 20:18 | disposition home or self-care (01) ==
LOC: MED 16:21
DX: R07.9 Chest pain, unspecified (principal); R53.1 Weakness; J45.909 Unspecified asthma, uncomplicated; E11.9 Type 2 diabetes mellitus without complications; Z79.899 Other long term (current) drug therapy; Z79.1 Long term (current) use of non-steroidal anti-inflammatories (NSAID); Z79.2 Long term (current) use of antibiotics
CPT/HCPCS: 36415; 71045; 80053; 81003; 84484; 85025; 87086; 93005; 99285

== ENCOUNTER 2022-05-29 22:37 | Emergency (ER) | payer MEDICAID ==
[~2022-05-29] VITALS: Ht 160 cm; Wt 77.1 kg
[2022-05-29 22:40] VITALS: BP 134/68
--- NOTE | 2022-05-29 22:43 | NUR ---
to lobby a/w bed ambulatory
--- NOTE | 2022-05-29 22:54 | NUR ---
PT TAKEN TO BED 12
[2022-05-29] MEDS ORDERED: KETOROLAC 60 MG/2 ML VIAL IM ONE (23:10)
--- NOTE | 2022-05-29 23:23 | NUR ---
FIRST CONTACT WITH PT. SEE ASSESSMENT. WILL FOLLOW THROUGH WITH ORDERS.
--- NOTE | 2022-05-29 23:23 | NUR ---
PT MEDICATED PER ORDERS GIVEN.
[2022-05-29] MEDS ORDERED: ATA25 PO (23:48)
[2022-05-29] MEDS ORDERED: IBUP-2213 PO (23:48)
[2022-05-29 23:58] VITALS: BP 134/68
--- NOTE | 2022-05-29 23:58 | NUR ---
Patient discharged with v/s stable. Written and verbal after care instructions given and explained. Patient alert, oriented and verbalized understanding of instructions. Ambulatory with steady gait. All questions addressed prior to discharge. ID band removed. Patient advised to follow up with PMD. Rx of ATARAX, IBUPROFEN given. Patient educated on indication of medication including possible reaction and side effects. Opportunity to ask questions provided and answered.
== END 2022-05-29 23:58 | disposition home or self-care (01) ==
LOC: MED 22:37
DX: F41.9 Anxiety disorder, unspecified (principal); J45.909 Unspecified asthma, uncomplicated; I10 Essential (primary) hypertension; E11.9 Type 2 diabetes mellitus without complications; Z79.4 Long term (current) use of insulin; Z79.899 Other long term (current) drug therapy
CPT/HCPCS: 81002; 81025; 96372; 99283; J1885

== ENCOUNTER 2022-06-27 04:15 | Emergency (ER) | payer MEDICAID ==
[~2022-06-27] VITALS: Ht 157.5 cm; Wt 81.6 kg
[~2022-06-27 04:15] MED LIST changes: +ATA25 PO
[2022-06-27 04:38] VITALS: BP 148/76
--- NOTE | 2022-06-27 04:43 | NUR ---
TO BED FOLLOWING TRIAGE
--- NOTE | 2022-06-27 05:02 | NUR ---
Patient being evaluated by physician at bedside.
[2022-06-27] MEDS ORDERED: METH4TAB27 PO (05:54)
[2022-06-27] MEDS ORDERED: NAPR-54 PO (05:54)
--- NOTE | 2022-06-27 06:14 | NUR ---
46YR OLD FEMALE BIB SELF C/O COUGH CONGESTION X3 DAYS. PT BULGARIAN SPEAKING ONLY. PT IS A&OX4. RESP EVEN AND UNLABORED. SKIN WARM AND DRY. NKDA NO MED HX
--- NOTE | 2022-06-27 06:19 | NUR ---
The patient's care was reviewed and supervised by Gita Gomez RN.
== END 2022-06-27 06:00 | disposition home or self-care (01) ==
LOC: MED 04:15
DX: J06.9 Acute upper respiratory infection, unspecified (principal); J45.909 Unspecified asthma, uncomplicated; I10 Essential (primary) hypertension; E11.9 Type 2 diabetes mellitus without complications; Z79.899 Other long term (current) drug therapy; Z79.1 Long term (current) use of non-steroidal anti-inflammatories (NSAID); Z79.2 Long term (current) use of antibiotics
CPT/HCPCS: 99282

== ENCOUNTER 2022-11-18 11:54 | Emergency (ER) | payer MEDICAID ==
[~2022-11-18] VITALS: Ht 160 cm; Wt 77.1 kg
[~2022-11-18 11:54] MED LIST changes: +METH4TAB27 PO; +MONT-72 PO; -MONT10TA35 PO
[2022-11-18 12:02] VITALS: BP 108/68
--- NOTE | 2022-11-18 12:07 | NUR ---
Patient BIBA to bed 7.
--- NOTE | 2022-11-18 12:52 | NUR ---
47 y/o female biba from home for c/o headache and general malaise x today. Per patient, she was eating lunch and then she started feeling not well. Patient reports laying down and resting with no relief. Patient has a headache that is gradually getting better. Denies any fevers, chills or SOB. Blood sugar on scene was 227. Medical History: DM, Asthma, Anxiety NKDA
--- NOTE | 2022-11-18 13:00 | NUR ---
X-Ray at bedside.
--- NOTE | 2022-11-18 13:02 | NUR ---
Note stephania in EDM - 11/18/22 at 1600 by MEDPMR Patient discharged with v/s stable. Written and verbal after care instructions given and explained. Patient verbalized understanding. Ambulatory with steady gait. All questions addressed prior to discharge. Advised to follow up with PMD. COPY OF LABS AND IMAGING GIVEN SURY AND KUSUM GIVEN
--- NOTE | 2022-11-18 13:02 | NUR ---
Patient ambulated to restroom with steady gait.
[2022-11-18 13:10] LABS: BASOPHILS # (AUTO) 0.1 K/uL (0.00-0.22); BASOPHILS % (AUTO) 0.7 % (0.0-2.0); EOSINOPHILS # (AUTO) 0.3 K/uL (0-0.4); EOSINOPHILS % (AUTO) 3.5 % (0.0-4.0); HEMATOCRIT 38.4 % (36-48); LYMPHOCYTES # (AUTO) 2.9 K/uL (2.5-16.5); LYMPHOCYTES % (AUTO) 30.1 % (20.5-51.1); MEAN CORPUSCULAR HEMOGLOBIN 30 pg (27-31); MEAN CORPUSCULAR HGB CONC 34 g/dL (33-37); MEAN CORPUSCULAR VOLUME 88.8 fL (80-94); MONOCYTES # (AUTO) 0.6 K/uL (0.8-1.0); MONOCYTES % (AUTO) 5.8 % (1.7-9.3); NEUTROPHILS # (AUTO) 5.8 K/uL (1.8-7.7); NEUTROPHILS % (AUTO) 59.9 % (42.2-75.2); PLATELET COUNT (AUTO) 260 K/uL (140-450); RED BLOOD CELL COUNT(AUTO) 4.32 MIL/uL (4.20-5.40); RED CELL DISTRIBUTION WIDTH 13.6 % (11.6-13.7); WHITE BLOOD COUNT (AUTO) 9.7 K/uL (4.8-10.8)
[2022-11-18 13:39] LABS: ALBUMIN 3.5 g/dL (3.4-5.0); ANION GAP 10.8 (8-16); ASPARTATE AMINOTRANSFERASE 20 U/L (15-37); CARBON DIOXIDE 29.8 mmol/L (21-32); CHLORIDE 104 mmol/L (98-107); CREATININE 0.6 mg/dL (0.6-1.3); GFR ARICAN-AMERICAN 139 mL/min (>90); GLUCOSE 259 mg/dL (74-106); POTASSIUM 3.6 mmol/L (3.5-5.1); SODIUM SERUM 141 mmol/L (136-145); TOTAL BILIRUBIN 0.4 mg/dL (0.0-1.0); UREA NITROGEN, BLOOD 13 mg/dL (7-18)
[2022-11-18 15:53] VITALS: BP 108/68
--- NOTE | 2022-11-18 15:53 | NUR ---
Patient discharged with v/s stable. Written and verbal after care instructions given and explained. Patient verbalized understanding. Ambulatory with steady gait. All questions addressed prior to discharge. Advised to follow up with PMD. COPY OF LABS AND IMAGING GIVEN SURY AND KUSUM GIVEN
--- NOTE | 2022-11-18 16:00 | NUR ---
The patient's care was reviewed and supervised by Chrystal Owens, RN, RN.
== END 2022-11-18 15:53 | disposition home or self-care (01) ==
LOC: MED 11:54
DX: R07.9 Chest pain, unspecified (principal); J45.909 Unspecified asthma, uncomplicated; E11.9 Type 2 diabetes mellitus without complications; I10 Essential (primary) hypertension; Z79.899 Other long term (current) drug therapy; Z79.1 Long term (current) use of non-steroidal anti-inflammatories (NSAID); Z79.2 Long term (current) use of antibiotics
CPT/HCPCS: 36415; 71045; 80053; 84484; 85025; 93005; 99285; Q0092

== ENCOUNTER 2023-04-05 17:22 | Emergency (ER) | payer MEDICAID ==
[~2023-04-05] VITALS: Ht 152.4 cm; Wt 81.6 kg
[2023-04-05 17:35] VITALS: BP 130/68; PULSE 63; RESP 20; TEMP 97.7; O2SAT 96
[2023-04-05 18:36] LABS: BASOPHILS # (AUTO) 0.1 K/uL (0.00-0.22); BASOPHILS % (AUTO) 0.6 % (0.0-2.0); EOSINOPHILS # (AUTO) 0.3 K/uL (0-0.4); EOSINOPHILS % (AUTO) 3.3 % (0.0-4.0); HEMATOCRIT 38.7 % (36-48); HEMOGLOBIN 13.1 g/dL (12.0-16.0); LYMPHOCYTES # (AUTO) 3.8 K/uL (2.5-16.5); LYMPHOCYTES % (AUTO) 36.2 % (20.5-51.1); MEAN CORPUSCULAR HEMOGLOBIN 30 pg (27-31); MEAN CORPUSCULAR HGB CONC 34 g/dL (33-37); MEAN CORPUSCULAR VOLUME 88.3 fL (80-94); MONOCYTES # (AUTO) 0.6 K/uL (0.8-1.0); MONOCYTES % (AUTO) 5.2 % (1.7-9.3); NEUTROPHILS # (AUTO) 5.8 K/uL (1.8-7.7); NEUTROPHILS % (AUTO) 54.7 % (42.2-75.2); PLATELET COUNT (AUTO) 270 K/uL (140-450); RED BLOOD CELL COUNT(AUTO) 4.38 MIL/uL (4.20-5.40); RED CELL DISTRIBUTION WIDTH 13.8 % (11.6-13.7); WHITE BLOOD COUNT (AUTO) 10.6 K/uL (4.8-10.8)
[2023-04-05 18:52] LABS: ALBUMIN 3.6 g/dL (3.4-5.0); ANION GAP 10.3 (8-16); CALCIUM 8.9 mg/dL (8.5-10.1); CARBON DIOXIDE 29.5 mmol/L (21-32); CREATININE 0.8 mg/dL (0.6-1.3); POTASSIUM 3.8 mmol/L (3.5-5.1); TOTAL BILIRUBIN 0.3 mg/dL (0.0-1.0)
[2023-04-05 19:41] LABS: APPEARANCE,URINE HAZY (CLEAR); COLOR,URINE AMBER (YELLOW)
[2023-04-05 19:43] LABS: LEUKOCYTE ESTERASE ,URINE NEGATIVE (NEGATIVE); NITRITE, URINE NEGATIVE (NEGATIVE); PROTEIN,URINE TRACE (NEGATIVE); UROBILINOGEN,URINE 0.2 EU/dL (0.2 - 1)
[2023-04-05 19:44] LABS: BILIRUBIN,URINE NEGATIVE (NEGATIVE)
[2023-04-05 19:45] LABS: BLOOD, URINE 1+ (NEGATIVE); UGLUCOSE NEGATIVE (NEGATIVE)
[2023-04-05 19:47] LABS: BACTERIA,URINE 10-30 (MOD) /HPF (None Seen); MUCUS,URINE 1+ /LPF (None Seen); SQUAMOUS EPITHELIAL CELL,UR 4-10 (MOD) /LPF (0-3 (FEW)); WBC,URINE 0-5 /HPF (0-5)
[2023-04-05] MEDS ORDERED: ALUMINUM HYD/MAG/SIMETHICONE 30 ML UDC PO ONE (20:40)
[2023-04-05] MEDS ORDERED: FAMOTIDINE 20 MG TAB PO ONE (20:40)
[2023-04-05 22:42] VITALS: BP 130/71; PULSE 65; RESP 18; O2SAT 98
[2023-04-06] MEDS ORDERED: MAG-27 PO (00:45)
[2023-04-06] MEDS ORDERED: NITR100C7 PO (00:45)
== END 2023-04-06 00:45 | disposition home or self-care (01) ==
LOC: MED 17:22
DX: R10.13 Epigastric pain (principal); R82.71 Bacteriuria; E11.9 Type 2 diabetes mellitus without complications; K21.9 Gastro-esophageal reflux disease without esophagitis; J45.909 Unspecified asthma, uncomplicated; I10 Essential (primary) hypertension; Z79.899 Other long term (current) drug therapy
CPT/HCPCS: 36415; 80053; 81001; 81025; 83690; 84484; 85025; 87086; 93005; 99284

== ENCOUNTER 2023-04-20 14:34 | Emergency (ER) | payer MEDICAID ==
[~2023-04-20] VITALS: Ht 157.5 cm; Wt 83.0 kg
[~2023-04-20 14:34] MED LIST changes: +MAG-27 PO; +NITR100C7 PO
[2023-04-20 15:01] VITALS: BP 106/58; PULSE 64; RESP 20; TEMP 98; O2SAT 100
[2023-04-20 16:11] VITALS: BP 106/58; PULSE 64; RESP 20; TEMP 98; O2SAT 100
== END 2023-04-20 16:11 | disposition home or self-care (01) ==
LOC: MED 14:34
DX: Z00.8 Encounter for other general examination (principal); T45.2X5A Adverse effect of vitamins, initial encounter; E11.9 Type 2 diabetes mellitus without complications; I10 Essential (primary) hypertension; J45.909 Unspecified asthma, uncomplicated; Z79.4 Long term (current) use of insulin; Z79.899 Other long term (current) drug therapy; Y92.89 Other specified places as the place of occurrence of the external cause
CPT/HCPCS: 99281

== ENCOUNTER 2023-05-26 18:28 | Emergency (ER) | payer MEDICAID | END 2023-05-26 18:38 | disposition left against medical advice (07) | LOC: MED 18:28 | DX: R51.9 Headache, unspecified (principal); Z53.21 Procedure and treatment not carried out due to patient leaving prior to being seen by health care provider ==

== ENCOUNTER 2023-06-02 18:11 | Emergency (ER) | payer MEDICAID ==
[~2023-06-02] VITALS: Ht 139.7 cm; Wt 83.0 kg
[2023-06-02 18:28] VITALS: BP 127/77; PULSE 63; RESP 18; TEMP 97.8; O2SAT 98
== END 2023-06-02 19:47 | disposition home or self-care (01) ==
LOC: MED 18:11
DX: F41.9 Anxiety disorder, unspecified (principal); R51.9 Headache, unspecified; J45.909 Unspecified asthma, uncomplicated; E11.9 Type 2 diabetes mellitus without complications; I10 Essential (primary) hypertension; Z79.4 Long term (current) use of insulin; Z79.899 Other long term (current) drug therapy
CPT/HCPCS: 99282

== ENCOUNTER 2023-09-26 02:10 | Emergency (ER) | payer MEDICAID ==
[~2023-09-26] VITALS: Ht 154.9 cm; Wt 84.8 kg
[2023-09-26 02:40] VITALS: BP 109/57; PULSE 58; RESP 18; TEMP 97; O2SAT 97
[2023-09-26] MEDS: ALUMINUM HYD/MAG/SIMETHICONE 30 ML UDC PO ONE (03:15)
[2023-09-26 03:22] LABS: BASOPHILS # (AUTO) 0.1 K/uL (0.00-0.22); BASOPHILS % (AUTO) 0.7 % (0.0-2.0); EOSINOPHILS # (AUTO) 0.5 K/uL (0-0.4); EOSINOPHILS % (AUTO) 4.4 % (0.0-4.0); HEMATOCRIT 37.5 % (36-48); HEMOGLOBIN 12.9 g/dL (12.0-16.0); LYMPHOCYTES # (AUTO) 4.2 K/uL (2.5-16.5); MEAN CORPUSCULAR HEMOGLOBIN 30 pg (27-31); MEAN CORPUSCULAR HGB CONC 35 g/dL (33-37); MEAN CORPUSCULAR VOLUME 87.9 fL (80-94); MONOCYTES # (AUTO) 0.7 K/uL (0.8-1.0); MONOCYTES % (AUTO) 6.2 % (1.7-9.3); NEUTROPHILS # (AUTO) 5.5 K/uL (1.8-7.7); NEUTROPHILS % (AUTO) 50.7 % (42.2-75.2); PLATELET COUNT (AUTO) 234 K/uL (140-450); RED BLOOD CELL COUNT(AUTO) 4.27 MIL/uL (4.20-5.40); RED CELL DISTRIBUTION WIDTH 13.7 % (11.6-13.7); WHITE BLOOD COUNT (AUTO) 10.9 K/uL (4.8-10.8)
[2023-09-26 03:31] LABS: ANION GAP 10.8 (8-16); CALCIUM 8.4 mg/dL (8.5-10.1); CARBON DIOXIDE 28.8 mmol/L (21-32); CREATININE 0.5 mg/dL (0.6-1.3); POTASSIUM 3.6 mmol/L (3.5-5.1)
[2023-09-26 03:38] LABS: ALANINE AMINOTRANSFERASE 18 U/L (12-78); ALBUMIN 3.3 g/dL (3.4-5.0); ALKALINE PHOSPHATASE 99 U/L (50-136); ASPARTATE AMINOTRANSFERASE 19 U/L (15-37); BILIRUBIN,DIRECT 0.1 mg/dL (0.0-0.3); LIPASE 58 U/L (16-77); TOTAL BILIRUBIN 0.2 mg/dL (0.0-1.0); TOTAL PROTEIN, SERUM 8.1 g/dL (6.4-8.2)
[2023-09-26] MEDS ORDERED: FAMO-90 PO (03:59)
[2023-09-26] MEDS ORDERED: SUCR1TAB35 PO (03:59)
== END 2023-09-26 04:02 | disposition home or self-care (01) ==
LOC: MED 02:10
DX: K21.9 Gastro-esophageal reflux disease without esophagitis (principal); J45.909 Unspecified asthma, uncomplicated; E11.9 Type 2 diabetes mellitus without complications; I10 Essential (primary) hypertension; Z79.4 Long term (current) use of insulin; Z79.899 Other long term (current) drug therapy
CPT/HCPCS: 36415; 71045; 80048; 80076; 83690; 84484; 85025; 93005; 99285

== ENCOUNTER 2024-04-05 19:32 | Emergency (ER) | payer MEDICAID ==
[~2024-04-05] VITALS: Ht 162.6 cm; Wt 93.0 kg
[~2024-04-05 19:32] MED LIST changes: +FAMO-90 PO; +NAPR-337 PO; -NAPR-54 PO; +SUCR-3 PO
[2024-04-05 19:52] VITALS: BP 121/69; PULSE 67; RESP 14; TEMP 97.9; O2SAT 99
[2024-04-05 19:58] VITALS: BP 121/69; PULSE 67; RESP 14; TEMP 97.9
[2024-04-05 20:02] VITALS: O2SAT 99
--- NOTE | 2024-04-05 20:02 | NUR ---
family member at bedside, ambulate to bed 4, bs 128 on scne
[2024-04-05 20:24] LABS: BASOPHILS # (AUTO) 0.1 K/uL (0.00-0.22); BASOPHILS % (AUTO) 0.7 % (0.0-2.0); EOSINOPHILS # (AUTO) 0.3 K/uL (0-0.4); EOSINOPHILS % (AUTO) 2.9 % (0.0-4.0); HEMATOCRIT 36.5 % (36-48); HEMOGLOBIN 12.3 g/dL (12.0-16.0); LYMPHOCYTES # (AUTO) 4.1 K/uL (2.5-16.5); LYMPHOCYTES % (AUTO) 36.4 % (20.5-51.1); MEAN CORPUSCULAR HEMOGLOBIN 30 pg (27-31); MEAN CORPUSCULAR HGB CONC 34 g/dL (33-37); MEAN CORPUSCULAR VOLUME 88.6 fL (80-94); MONOCYTES # (AUTO) 0.9 K/uL (0.8-1.0); MONOCYTES % (AUTO) 7.7 % (1.7-9.3); NEUTROPHILS # (AUTO) 5.9 K/uL (1.8-7.7); NEUTROPHILS % (AUTO) 52.3 % (42.2-75.2); PLATELET COUNT (AUTO) 231 K/uL (140-450); RED BLOOD CELL COUNT(AUTO) 4.12 MIL/uL (4.20-5.40); RED CELL DISTRIBUTION WIDTH 13.6 % (11.6-13.7); WHITE BLOOD COUNT (AUTO) 11.3 K/uL (4.8-10.8)
[2024-04-05 20:32] LABS: ANION GAP 14.1 (8-16); CALCIUM 8.8 mg/dL (8.5-10.1); CARBON DIOXIDE 26.5 mmol/L (21-32); CREATININE 0.7 mg/dL (0.6-1.3); POTASSIUM 3.6 mmol/L (3.5-5.1)
[2024-04-05 20:52] LABS: THYROID STIMULATING HORMONE 1.15 uIU/mL (0.34-3.74)
[2024-04-05] MEDS ORDERED: BENZ-300 PO (21:05)
--- NOTE | 2024-04-05 21:26 | NUR ---
Patient discharged with v/s stable. Written and verbal after care instructions given and explained. Patient verbalized understanding. Ambulatory with by caregiver. All questions addressed prior to discharge. Advised to follow up with PMD.
== END 2024-04-05 21:26 | disposition home or self-care (01) ==
LOC: MED 19:32
DX: J06.9 Acute upper respiratory infection, unspecified (principal); Z20.822 Contact with and (suspected) exposure to COVID-19; M79.10 Myalgia, unspecified site; J45.909 Unspecified asthma, uncomplicated; E11.9 Type 2 diabetes mellitus without complications; I10 Essential (primary) hypertension; Z79.899 Other long term (current) drug therapy
CPT/HCPCS: 36415; 80048; 84443; 84484; 85025; 87081; 99283